=== PATIENT | male | born 1945 | race Caucasian/White ===

== ENCOUNTER 2017-04-06 22:56 | Emergency (ER) | payer MEDICARE, BC ==
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
[2017-04-07 00:07] LABS: Appearance,Urine Clear (Clear); Bilirubin,Urine Negative (Negative); Glucose,Urine (UA) Negative (Negative); Ketones,Urine Trace (Negative); Leukocyte Esterase,Urine Negative (Negative); Nitrite,Urine Negative (Negative); PH, Urine 6.5 (5.0-8.0); Protein,Urine Negative (Negative); Specific Gravity,Urine 1.017 (1.001-1.035); UA Billing (MACRO vs. MICRO) CHEM; Urobilinogen,Urine <2.0 mg/dL (<2.0)
[2017-04-07 00:26] LABS: Basophils % (A) 1 %; CH 29.9; CHCM 32.6; Eosinophils # (A) 0.3 k/uL (0-0.7); Eosinophils % (A) 5 %; HCT 40.5 % (39.0-53.0); HDW 2.51; HGB 13.1 gm/dL (13.0-17.5); Luc # (Auto) 0.11; Luc % (Auto) 2; Lymphocytes # (A) 2.1 k/uL (1.0-4.8); Lymphocytes % (A) 34 %; MCH 29.9 pg (25.0-35.0); MCHC 32.5 g/dL (31.0-37.0); Mean Platelet Volume 7.8; Monocytes # (A) 0.5 k/uL (0-1.0); Monocytes % (A) 8 %; Neutrophils # (A) 3.2 k/uL (1.3-7.7); Neutrophils % (A) 51 %; RDW 15.3 % (11.5-15.5); WBC 6.3 k/uL (3.8-10.6)
[2017-04-07 00:35] LABS: ALT 22 U/L (21-72); AST 36 U/L (17-59); Alkaline Phosphatase 67 U/L (38-126); Anion Gap 9 mmol/L; Blood Urea Nitrogen 27 mg/dL (9-20); Calcium 9.1 mg/dL (8.4-10.2); Carbon Dioxide 25 mmol/L (22-30); Chloride 105 mmol/L (98-107); Glucose 118 mg/dL (74-99); Non-African American GFR(MDRD) >60 (>60 ml/min/1.73 sqM); Sodium 139 mmol/L (137-145); Total Bilirubin 0.6 mg/dL (0.2-1.3); Total Protein 6.9 g/dL (6.3-8.2)
[2017-04-07 00:37] LABS: Potassium 4.8 mmol/L (3.5-5.1)
[2017-04-07 02:13] VITALS: BP 136/75; PULSE 75; RESP 16; TEMP 98.3
== END 2017-04-07 02:16 | disposition home or self-care (01) ==
LOC: EC 22:56
DX: G20 Parkinson's disease (principal); F02.81 Dementia in other diseases classified elsewhere, unspecified severity, with behavioral disturbance; F05 Delirium due to known physiological condition; F31.9 Bipolar disorder, unspecified; Z87.891 Personal history of nicotine dependence
CPT/HCPCS: 36415; 80053; 80306; 81003; 82075; 85025; 99284

== ENCOUNTER → 2022-10-12 | Outpatient (CLI) | payer MEDICARE, BC ==
[2022-10-12 16:33] LABS: African American GFR (CKD) >90 (>60 ml/min/1.73 sqM); Blood Urea Nitrogen 21 mg/dL (9-20); Non-African American GFR(CKD) 84 (>60 ml/min/1.73 sqM)
--- NOTE | 2022-10-12 17:15 | CT ---
EXAMINATION TYPE: CT angio chest CT DLP: 614.30 mGycm, Automated exposure control for dose reduction was used. DATE OF EXAM: 10/12/2022 4:53 PM COMPARISON: PET 08/30/2022 CLINICAL INDICATION:Male, 76 years old with history of SOB R06.02; SOB. HX OF PE AND LUNG CA TECHNIQUE/CONTRAST: CTA scan of the thorax is performed with IV Contrast, patient injected with 89ML mL of Isovue 370, pu lmonary embolism protocol. MIP images are created and reviewed these are created on a separate works tation.. FINDINGS: Pulmonary Artery: There is no evidence for a filling defect within the pulmonary vasculature to sugge st acute pulmonary embolism. The pulmonary artery is of normal size. Lungs/Pleura: Redemonstration of left upper lung mass roughly soft tissue measuring 11.1 x 5.5 cm ant eriorly, previously measuring 9.2 x 6.2 cm.. There is extension into the mediastinum into the mediast inal fat and along the wall likely anteriorly likely invading through the pleura. Scattered airspace opacities are seen in the left upper lung. Airway: Large airways are patent. Heart: Heart is within normal limits for size. Vasculature: No evidence of aortic aneurysm. Mediastinum: No gross evidence of adenopathy. Musculoskeletal: No acute osseous abnormalities Soft Tissues: Unremarkable. Lower neck: No significant findings. Upper Abdomen: No significant findings. IMPRESSION: 1. No evidence of pulmonary embolism. 2. Left upper lung airspace opacities which are new from prior PET criteria for pneumonia. 3. Known left upper lobe mass which is increased in size from prior. Mass appears to be invading into the mediastinal fat and the chest wall anteriorly.
== END | disposition home or self-care (01) ==
LOC: RADCTMAIN 15:37
PROVIDERS: ATTEND Internal Medicine Hematology & Oncology
DX: R91.8 Other nonspecific abnormal finding of lung field (principal); R06.02 Shortness of breath; Z86.711 Personal history of pulmonary embolism
CPT/HCPCS: 82565; 84520; 71275; 36415; Q9967

== ENCOUNTER → 2022-12-09 | Outpatient (CLI) | payer MEDICARE, BC ==
--- NOTE | 2022-12-09 08:57 | CT ---
EXAMINATION TYPE: CT chest w con DATE OF EXAM: 12/09/2022 COMPARISON: CTA chest October 12, 2022 HISTORY: Lung cancer, dyspnea CT DLP: 962 mGycm. Automated Exposure Control for Dose Reduction was Utilized. TECHNIQUE: CT scan of the thorax is performed following with IV Contrast, patient injected with 100 mL of Isovue 300. FINDINGS: LUNGS: Elevated left hemidiaphragm with small left pleural effusion and tiny right pleural effusion a re more prominent from prior. There are new areas of groundglass opacity bilaterally with additional areas of organizing consolidation seen throughout the left lung. Anterior left apical mass on prior s tudy now is more ill-defined and difficult to accurately measure. Area of involvement measures approx imately 4.7 x 3.0 cm axial image 16. MEDIASTINUM: Cardiomegaly is redemonstrated. Post-CABG changes with sternal wires and mediastinal cl ips are again seen. No new greater than 1 cm hilar or mediastinal lymph nodes. OTHER: Exaggerated thoracic kyphosis. Multilevel spurring in the spine. IMPRESSION: 1. Positive treatment response to the anterior left upper lung mass or neoplasm. No new masses or sherwin nopathy. 2. There are new and worsening groundglass opacities bilaterally with additional areas of consolidati on in the left lung. Findings could reflect acute infectious process but side effect of pneumonitis r elated to treatment needs to be considered. Correlate clinically.
== END | disposition home or self-care (01) ==
LOC: RADCTMAIN 07:22
PROVIDERS: ATTEND Internal Medicine Hematology & Oncology
DX: C34.12 Malignant neoplasm of upper lobe, left bronchus or lung (principal); I25.10 Atherosclerotic heart disease of native coronary artery without angina pectoris; R91.8 Other nonspecific abnormal finding of lung field; Z71.3 Dietary counseling and surveillance; M12.9 Arthropathy, unspecified
CPT/HCPCS: 82565; 84520; 71260; 36415; Q9967

== ENCOUNTER 2022-12-10 12:03 | Inpatient (IN) | payer MEDICARE, BC ==
[2022-12-10] MEDS ORDERED: ALBUTEROL NEBULIZED 2.5 MG/3 ML INHALATION STA (12:17)
[2022-12-10] MEDS ORDERED: methylPREDNISolone SOD SUCCI 125 MG/2 ML VIAL IV STA (12:17)
[2022-12-10] MEDS ORDERED: IPRATROPIUM 0.5 MG/2.5 ML NEBU INHALATION STA (12:17)
--- NOTE | 2022-12-10 12:44 | ED ---
General Adult HPI - General Chief complaint: Shortness of Breath Stated complaint: SOB Time Seen by Provider: 12/10/22 12:12 Source: patient, RN notes reviewed, old records reviewed Mode of arrival: ambulatory Limitations: no limitations - History of Present Illness Initial comments: 77-year-old male history of lung cancer status post chemo with most recent chemo being about 30 days ago. He is presenting with dyspnea from the primary care office. He does report cough which is nonproductive. No fever. No central chest pain. Patient states he is on Eliquis. - Related Data Home Medications Medication Instructions Recorded Confirmed Apixaban [Eliquis] 5 mg PO BID 11/03/22 11/03/22 Aspirin EC [Ecotrin Low Dose] 81 mg PO DAILY 11/03/22 11/03/22 Carbidopa-Levodopa ER 50-200Mg 2 tab PO TID 11/03/22 11/03/22 [Sinemet CR 50-200 mg] Divalproex [Depakote] 250 mg PO TID 11/03/22 11/03/22 Donepezil HCl [Aricept] 10 mg PO DAILY 11/03/22 11/03/22 Furosemide [Lasix] 20 mg PO DAILY 11/03/22 11/03/22 Levothyroxine Sodium [Synthroid] 50 mcg PO DAILY 11/03/22 11/03/22 Metoprolol Succinate (ER) [Toprol 25 mg PO DAILY 11/03/22 11/03/22 XL] OLANZapine [ZyPREXA] 10 mg PO DAILY 11/03/22 11/03/22 QUEtiapine [SEROquel] 200 mg PO HS 11/03/22 11/03/22 SILVER sulfADIAZINE Cream 1 applic TOPICAL BID 11/03/22 11/03/22 [Silvadene 1% Cream] Simvastatin [Zocor] 40 mg PO HS 11/03/22 11/03/22 amantadine HCL [Amantadine] 100 mg PO BID 11/03/22 11/03/22 Previous Rx's Medication Instructions Recorded Ferrous Sulfate [Iron (65 MG 325 mg PO BID@1200,2000 #60 tab 11/10/22 Elemental)] Pantoprazole [Protonix] 40 mg PO DAILY #30 tab 11/10/22 Allergies Allergy/AdvReac Type Severity Reaction Status Date / Time No Known Allergies Allergy Verified 12/10/22 12:10 Review of Systems ROS Statement: Those systems with pertinent positive or pertinent negative responses have been documented in the HPI. ROS Other: All systems not noted in ROS Statement are negative. Past Medical History Past Medical History: Myocardial Infarction ([place]) Additional Past Medical History / Comment(s): parkinson, dementia, Last Myocardial Infarction Date:: 1982 History of Any Multi-Drug Resistant Organisms: None Reported Past Surgical History: Coronary Bypass/CABG Additional Past Surgical History / Comment(s): hip surgery Past Anesthesia/Blood Transfusion Reactions: No Reported Reaction Past Psychological History: No Psychological Hx Reported Smoking Status: Never smoker Past Alcohol Use History: None Reported Past Drug Use History: None Reported General Exam Limitations: no limitations General appearance: alert, in distress Head exam: Present: atraumatic, normocephalic Eye exam: Present: normal appearance, PERRL ENT exam: Present: normal exam Neck exam: Present: normal inspection. Absent: tenderness, meningismus Respiratory exam: Present: respiratory distress, wheezes, decreased breath sounds Cardiovascular Exam: Present: regular rate, normal rhythm GI/Abdominal exam: Present: soft. Absent: distended, tenderness, guarding Extremities exam: Present: pedal edema Neurological exam: Present: alert, oriented X3, CN II-XII intact. Absent: motor sensory deficit Psychiatric exam: Present: normal affect, normal mood Skin exam: Present: warm, dry, intact Course Vital Signs 12/10/22 12/10/22 12/10/22 12:08 12:39 12:43 Temperature 97.8 F Pulse Rate 93 110 H 87 Respiratory 40 H 40 H Rate Blood Pressure 119/74 93/54 O2 Sat by Pulse 85 L 85 L Oximetry 12/10/22 12:53 Temperature Pulse Rate 86 Respiratory Rate Blood Pressure O2 Sat by Pulse Oximetry - Reevaluation(s) Reevaluation #1: 12/10/22 13:[address] of the chest performed yesterday which showed groundglass opacities in both lungs. Medical Decision Making - Medical Decision Making Was pt. sent in by a medical professional or institution (, PA, ASSISTANT ART DIRECTOR, urgent care, hospital, or halfway...) When possible be specific @ -No Did you speak to anyone other than the patient for history (EMS, parent, family, police, friend...)? What history was obtained from this source @ -Patient's Did you review nursing and triage notes (agree or disagree)? Why? @ -I reviewed and agree with nursing and triage notes Were old charts reviewed (outside hosp., previous admission, EMS record, old EKG, old radiological studies, urgent care reports/EKG's, halfway records)? Report findings @ CT performed yesterday Differential Diagnosis (chest pain, altered mental status, abdominal pain women, abdominal pain men, vaginal bleeding, weakness, fever, dyspnea, syncope, headache, dizziness, GI bleed, back pain, seizure, CVA, palpatations, mental health, musculoskeletal)? @ -Differential Dyspnea: Coronary syndrome, arrhythmia, tamponade, asthma, COPD, pulmonary embolism, pneu monia, pneumothorax, pulmonary effusion, anaphylaxis, diabetic ketoacidosis, flailed chest, pulmonary contusion, diaphragmatic rupture, anemia, neuromuscular, this is not meant to be an all-inclusive list. EKG interpreted by me (3pts min.). @ -[EKG: Sinus rhythm, right bundle branch block, left axis, rate of 92, OR interval 153, QRS duration 137, QTC [address] segment elevation X-rays interpreted by me (1pt min.). @ -[Chest x-ray showing significant multifocal opacity worse on the left. CT interpreted by me (1pt min.). @ CT of the chest performed yesterday which showed groundglass opacity and airspace disease U/S interpreted by me (1pt. min.). @ -None done What testing was considered but not performed or refused? (CT, X-rays, U/S, labs)? Why? @ -None What meds were considered but not given or refused? Why? @ -None Did you discuss the management of the patient with other professionals (professionals i.e. , PA, ASSISTANT ART DIRECTOR, lab, RT, psych nurse, social media assistant, director of global marketing, teacher, sustainability officer, case management assistant)? Give summary @ [facility] Was smoking cessation discussed for >3mins.? @ -No Was critical care preformed (if so, how long)? @ -[yes 35 min Were there social determinants of health that impacted care today? How? (Homelessness, low income, unemployed, alcoholism, drug addiction, transportation, low edu. Level, literacy, decrease access to med. care, fci, rehab)? @ -No Was there de-escalation of care discussed even if they declined (Discuss DNR or withdrawal of care, Hospice)? DNR status @ -[DO NOT RESUSCITATE What co-morbidities impacted this encounter? (DM, HTN, Smoking, COPD, CAD, Cancer, CVA, ARF, Chemo, Hep., AIDS, mental health diagnosis, sleep apnea, morbid obesity)? @ CAD, lung cancer Was patient admitted / discharged? Hospital course, mention meds given and route, prescriptions, significant lab abnormalities, going to OR and other pertinent info. @ 77 yo male presenting with dyspnea from the primary care office. Patient has cough. He has bilateral wheezing. X-ray shows significant airspace opacity which was also visualized on CAT scan which was performed yesterday. He has a normal white blood cell count, stable chronic anemia, significantly elevated troponin of 4.7 and an elevated d-dimer at 5600. This is multifactorial dyspnea. Patient will be treated with IV antibiotics for the possibility of pneumonia. Is also given albuterol, Atrovent steroids. He is on Eliquis but will be started on heparin for this troponin elevation. His does indicate that he is a DO NOT RESUSCITATE. Undiagnosed new problem with uncertain prognosis? @ -No Drug Therapy requiring intensive monitoring for toxicity (Heparin, Nitro, Insulin, Cardizem)? @ -No Were any procedures done? @ -No Diagnosis/symptom? @ -Hypoxia, pneumonia, and NSTEMI Acute, or Chronic, or Acute on Chronic? @ -[Acute Uncomplicated (without systemic symptoms) or Complicated (systemic symptoms)? @ -[Complicated Side effects of treatment? @ -No Exacerbation, Progression, or Severe Exacerbation? @ -No Poses a threat to life or bodily function? How? (Chest pain, [place], [place], pneumonia, PE, COPD, DKA, ARF, appy, cholecystitis, CVA, Diverticulitis, Homicidal, Suicidal, threat to staff... and all critical care pts) @ -[Yes, hypoxia, respiratory failure, cardiogenic shock - Lab Data Result diagrams: 12/10/22 12:17 12/10/22 12:17 Lab Results 12/10/22 12/10/22 12/10/22 Range/Units 12:17 12:17 12:17 WBC 10.0 (3.8-10.6) k/uL RBC 3.47 L (4.30-5.90) m/uL Hgb 9.5 L (13.0-17.5) gm/dL Hct 30.5 L (39.0-53.0) % MCV 87.9 (80.0-100.0) fL MCH 27.5 (25.0-35.0) pg MCHC 31.3 (31.0-37.0) g/dL RDW 20.5 H (11.5-15.5) % Plt Count 226 (150-450) k/uL MPV 7.7 Neutrophils % 82 % Lymphocytes % 5 % Monocytes % 9 % Eosinophils % 2 % Basophils % 0 % Neutrophils # 8.2 H (1.3-7.7) k/uL Lymphocytes # 0.5 L (1.0-4.8) k/uL Monocytes # 0.9 (0-1.0) k/uL Eosinophils # 0.2 (0-0.7) k/uL Basophils # 0.0 (0-0.2) k/uL Hypochromasia Marked Anisocytosis Moderate Sodium 140 (137-145) mmol/L Potassium 4.9 (3.5-5.1) mmol/L Chloride 99 (98-107) mmol/L Carbon Dioxide 31 H (22-30) mmol/L Anion Gap 10 mmol/L BUN 25 H (9-20) mg/dL Creatinine 1.10 (0.66-1.25) mg/dL Est GFR (CKD-EPI)AfAm 74 (>60 ml/min/1.73 sqM) Est GFR (CKD-EPI)NonAf 64 (>60 ml/min/1.73 sqM) Glucose 109 H (74-99) mg/dL Plasma Lactic Acid Gabo 3.1 H* (0.7-2.0) mmol/L Calcium 8.9 (8.4-10.2) mg/dL Magnesium 2.3 (1.6-2.3) mg/dL Total Bilirubin 0.4 (0.2-1.3) mg/dL AST 25 (17-59) U/L ALT 11 (4-49) U/L Alkaline Phosphatase 95 (38-126) U/L Troponin I (0.000-0.034) ng/mL NT-Pro-B Natriuret Pep pg/mL Total Protein 6.4 (6.3-8.2) g/dL Albumin 3.3 L (3.5-5.0) g/dL 12/10/22 12/10/22 Range/Units 12:17 12:17 WBC (3.8-10.6) k/uL RBC (4.30-5.90) m/uL Hgb (13.0-17.5) gm/dL Hct (39.0-53.0) % MCV (80.0-100.0) fL MCH (25.0-35.0) pg MCHC (31.0-37.0) g/dL RDW (11.5-15.5) % Plt Count (150-450) k/uL MPV Neutrophils % % Lymphocytes % % Monocytes % % Eosinophils % % Basophils % % Neutrophils # (1.3-7.7) k/uL Lymphocytes # (1.0-4.8) k/uL Monocytes # (0-1.0) k/uL Eosinophils # (0-0.7) k/uL Basophils # (0-0.2) k/uL Hypochromasia Anisocytosis Sodium (137-145) mmol/L Potassium (3.5-5.1) mmol/L Chloride (98-107) mmol/L Carbon Dioxide (22-30) mmol/L Anion Gap mmol/L BUN (9-20) mg/dL Creatinine (0.66-1.25) mg/dL Est GFR (CKD-EPI)AfAm (>60 ml/min/1.73 sqM) Est GFR (CKD-EPI)NonAf (>60 ml/min/1.73 sqM) Glucose (74-99) mg/dL Plasma Lactic Acid [place] (0.7-2.0) mmol/L Calcium (8.4-10.2) mg/dL Magnesium (1.6-2.3) mg/dL Total Bilirubin (0.2-1.3) mg/dL AST (17-59) U/L ALT (4-49) U/L Alkaline Phosphatase (38-126) U/L Troponin I 4.700 H* (0.000-0.034) ng/mL NT-Pro-B Natriuret Pep 5640 pg/mL Total Protein (6.3-8.2) g/dL Albumin (3.5-5.0) g/dL Critical Care Time Critical Care Time: Yes Total Critical Care Time: 35 Disposition Clinical Impression: NSTEMI (non-ST elevated myocardial infarction), Squamous cell carcinoma lung, Bilateral pneumonia, Hypoxia Disposition: ADMITTED IP TO THIS HOSP Condition: Serious Is patient prescribed a controlled substance at d/c from ED?: No Referrals: Jocy Joyce DO [Primary Care Provider] - 1-2 days Time of Disposition: 13:41
[2022-12-10 12:46] LABS: Anisocytosis Moderate; Basophils % (A) 0 %; Eosinophils # (A) 0.2 k/uL (0-0.7); Eosinophils % (A) 2 %; HCT 30.5 % (39.0-53.0); HGB 9.5 gm/dL (13.0-17.5); Hypochromasia Marked; Lymphocytes # (A) 0.5 k/uL (1.0-4.8); Lymphocytes % (A) 5 %; MCH 27.5 pg (25.0-35.0); MCHC 31.3 g/dL (31.0-37.0); MCV 87.9 fL (80.0-100.0); Mean Platelet Volume 7.7; Monocytes # (A) 0.9 k/uL (0-1.0); Monocytes % (A) 9 %; Neutrophils # (A) 8.2 k/uL (1.3-7.7); Neutrophils % (A) 82 %; Platelet Count 226 k/uL (150-450); RBC 3.47 m/uL (4.30-5.90); RDW 20.5 % (11.5-15.5)
[2022-12-10 12:56] LABS: Total Protein 6.4 g/dL (6.3-8.2)
[2022-12-10 12:57] LABS: Albumin 3.3 g/dL (3.5-5.0); Calcium 8.9 mg/dL (8.4-10.2); Magnesium 2.3 mg/dL (1.6-2.3); Potassium 4.9 mmol/L (3.5-5.1); Total Bilirubin 0.4 mg/dL (0.2-1.3)
--- NOTE | 2022-12-10 13:06 | XR ---
A limited lateral EXAMINATION TYPE: XR chest 1V portable DATE OF EXAM: 12/10/2022 HISTORY: Shortness of breath. COMPARISON: 11/09/22 TECHNIQUE: Single view of the chest is submitted. FINDINGS: Demonstrated are scattered senescent parenchymal change. Diffuse bilateral airspace infiltrates greatest within the perihilar and upper lobe regions. Correlat e for pneumonia. The heart is stable. Hilar and mediastinal structures are within normal limits. Degenerative changes are seen of the dorsal spine. IMPRESSION: 1. Diffuse bilateral airspace infiltrates greatest within the perihilar and upper lobe regions. Divya elate for pneumonia.
[2022-12-10] MEDS ORDERED: AZITHROMYCIN 500 MG in SODIUM CHLORIDE 0.9% 250 ML IVPB STA (13:17)
[2022-12-10 13:21] LABS: Partial Thromboplastin Time 22.3 sec (22.0-30.0); Prothrombin Time 10.3 sec (9.0-12.0)
[2022-12-10] MEDS ORDERED: HEPARIN SODIUM 1,000 UN/ML (10ML VL) IV ONE (13:34)
[2022-12-10] MEDS ORDERED: NALOXONE 0.4 MG/ML 1 ML VIAL IV PRN (13:36)
[2022-12-10] MEDS ORDERED: FUROSEMIDE 10 MG/ML 2 ML VIAL IV ONE (13:49)
[2022-12-10] MEDS: HEPARIN SOD,PORK IN 0.45% NACL 25,000 UNIT in 0.45% NACL 1 250ML.BAG IV SCH (14:01)
--- NOTE | 2022-12-10 14:04 | P.HPIM ---
History of Present Illness 77-year-old male came in with complaints of shortness of breath has been going on for 4 days. Patient does have history of lung cancer for which she received treatment about a month ago. A CT was done yesterday which showed multiple areas of pneumonic infiltrates in both lungs significant on the left side. Chest x-ray is done today which showed similar findings. Patient also found to have elevated troponin of 4.7 patient had history of coronary artery disease and CABG 30 years ago. No recent history of cardiac catheterization. Patient denied any fever chills patient doesn't have any leukocytosis. Patient does have elevated troponin of 4700 EKG showed right bundle branch block and there may be some nonspecific ST-T wave changes on the EKG as well. REVIEW OF SYSTEMS: CONSTITUTIONAL: No fever, no malaise, no fatigue. HEENT: No recent visual problems or hearing problems. Denied any sore throat. CARDIOVASCULAR: No chest pain, no palpitations, no syncope. PULMONARYno hemoptysis. GASTROINTESTINAL: No diarrhea, no nausea, no vomiting, no abdominal pain. NEUROLOGICAL: No headaches, no weakness, no numbness. HEMATOLOGICAL: Denies any bleeding or petechiae. GENITOURINARY: Denies any burning micturition, frequency, or urgency. MUSCULOSKELETAL/RHEUMATOLOGICAL: Denies any joint pain, swelling, or any muscle pain. ENDOCRINE: Denies any polyuria or polydipsia. The rest of the 14-point review of systems is negative. PHYSICAL EXAMINATION: GENERAL: The patient is alert and oriented x3, patient is in mild respiratory distress well developed, well nourished. HEENT: Pupils are round and equally reacting to light. EOMI. No scleral icterus. No conjunctival pallor. Normocephalic, atraumatic. No pharyngeal erythema. No thyromegaly. CARDIOVASCULAR: S1 and S2 present. No murmurs, rubs, or gallops. PULMONARY: Chest is clear to auscultation, no wheezing or crackles. ABDOMEN: Soft, nontender, nondistended, normoactive bowel sounds. No palpable organomegaly. MUSCULOSKELETAL: No joint swelling or deformity. EXTREMITIES: No cyanosis, clubbing, or pedal edema. NEUROLOGICAL: Gross neurological examination did not reveal any focal deficits. SKIN: No rashes. Assessment and plan -Acute hypoxic respiratory failure: Etiology is not clear CT is consistent with pneumonic infiltrate and we infectious pneumonia or inflammatory reaction secondary to chemotherapy. Patient will be started and continued on antibiotics Rocephin and azithromycin. Patient does have elevated BNP of 5000 and patient does have elevated JVD congestive heart failure new-onset may be contributing to his symptoms. Patient will be given a dose of Lasix. -Possible severe sepsis with elevated lactic acid, infectious pneumonia cannot be ruled out -Congestive heart heart failure possibly acute systolic dysfunction from pos sible acute microinfarction with elevated troponin and patient will be given a small dose of Lasix. -Possible type I non-ST elevation microinfarction patient is being started on IV heparin although patient does take Eliquis at home -mild acute renal failure secondary to acute tubular necrosis can be secondary to hypoperfusion and hypotension -History of Parkinson's -Gases reveal reflux disease -Hyperlipidemia next and heparin coronary artery disease -Hypothyroidism DVT prophylaxis: On anti-correlation as mentioned above Past Medical History Past Medical History: Myocardial Infarction ([place]) Additional Past Medical History / Comment(s): parkinson, dementia, Last Myocardial Infarction Date:: 1982 History of Any Multi-Drug Resistant Organisms: None Reported Past Surgical History: Coronary Bypass/CABG Additional Past Surgical History / Comment(s): hip surgery Past Anesthesia/Blood Transfusion Reactions: No Reported Reaction Past Psychological History: No Psychological Hx Reported Smoking Status: Never smoker Past Alcohol Use History: None Reported Past Drug Use History: None Reported Medications and Allergies Home Medications Medication Instructions Recorded Confirmed Type Apixaban [Eliquis] 5 mg PO BID 11/03/22 11/03/22 History Aspirin EC [Ecotrin Low Dose] 81 mg PO DAILY 11/03/22 11/03/22 History Carbidopa-Levodopa ER 50-200Mg 2 tab PO TID 11/03/22 11/03/22 History [Sinemet CR 50-200 mg] Divalproex [Depakote] 250 mg PO TID 11/03/22 11/03/22 History Donepezil HCl [Aricept] 10 mg PO DAILY 11/03/22 11/03/22 History Furosemide [Lasix] 20 mg PO DAILY 11/03/22 11/03/22 History Levothyroxine Sodium [Synthroid] 50 mcg PO DAILY 11/03/22 11/03/22 History Metoprolol Succinate (ER) [Toprol 25 mg PO DAILY 11/03/22 11/03/22 History XL] OLANZapine [ZyPREXA] 10 mg PO DAILY 11/03/22 11/03/22 History QUEtiapine [SEROquel] 200 mg PO HS 11/03/22 11/03/22 History SILVER sulfADIAZINE Cream 1 applic TOPICAL BID 11/03/22 11/03/22 History [Silvadene 1% Cream] Simvastatin [Zocor] 40 mg PO HS 11/03/22 11/03/22 History amantadine HCL [Amantadine] 100 mg PO BID 11/03/22 11/03/22 History Ferrous Sulfate [Iron (65 MG 325 mg PO BID@1200,2000 #60 tab 11/10/22 Rx Elemental)] Pantoprazole [Protonix] 40 mg PO DAILY #30 tab 11/10/22 Rx Allergies Allergy/AdvReac Type Severity Reaction Status Date / Time No Known Allergies Allergy Verified 12/10/22 12:10 Physical Exam Vitals: Vital Signs Temp Pulse Resp BP Pulse Ox 12/10/22 12:53 86 12/10/22 12:43 87 12/10/22 12:39 110 H 40 H 93/54 85 L 12/10/22 12:08 97.8 F 93 40 H 119/74 85 L Intake and Output 12/09/22 12/10/22 12/10/22 22:59 06:59 14:59 Other: Weight 103.419 kg Results CBC & Chem 7: 12/10/22 12:17 12/10/22 12:17 Labs: Abnormal Lab Results - Last 24 Hours (Table) 12/10/22 12/10/22 12/10/22 Range/Units 12:17 12:17 12:17 RBC 3.47 L (4.30-5.90) m/uL Hgb 9.5 L (13.0-17.5) gm/dL Hct 30.5 L (39.0-53.0) % RDW 20.5 H (11.5-15.5) % Neutrophils # 8.2 H (1.3-7.7) k/uL Lymphocytes # 0.5 L (1.0-4.8) k/uL Carbon Dioxide 31 H (22-30) mmol/L BUN 25 H (9-20) mg/dL Glucose 109 H (74-99) mg/dL Plasma Lactic Acid Gabo 3.1 H* (0.7-2.0) mmol/L Troponin I (0.000-0.034) ng/mL Albumin 3.3 L (3.5-5.0) g/dL 12/10/22 Range/Units 12:17 RBC (4.30-5.90) m/uL Hgb (13.0-17.5) gm/dL Hct (39.0-53.0) % RDW (11.5-15.5) % Neutrophils # (1.3-7.7) k/uL Lymphocytes # (1.0-4.8) k/uL Carbon Dioxide (22-30) mmol/L BUN (9-20) mg/dL Glucose (74-99) mg/dL Plasma Lactic Acid Gabo (0.7-2.0) mmol/L Troponin I 4.700 H* (0.000-0.034) ng/mL Albumin (3.5-5.0) g/dL
[2022-12-10] MEDS: HEPARIN SODIUM 1,000 UN/ML (10ML VL) IV PRN (20:56)
[2022-12-10] MEDS: FAMOTIDINE 20 MG TAB PO SCH (21:09)
[2022-12-11 03:28] LABS: Glucose,Whole Blood 146 mg/dL (70-110)
[2022-12-11] MEDS: HEPARIN SODIUM 1,000 UN/ML (10ML VL) IV PRN (03:44)
[2022-12-11 07:51] LABS: Anisocytosis Moderate; Basophils % (A) 0 %; Eosinophils % (A) 0 %; HCT 30.7 % (39.0-53.0); HGB 9.4 gm/dL (13.0-17.5); Hypochromasia Marked; Lymphocytes # (A) 0.5 k/uL (1.0-4.8); Lymphocytes % (A) 7 %; MCH 27.1 pg (25.0-35.0); MCHC 30.5 g/dL (31.0-37.0); MCV 88.8 fL (80.0-100.0); Mean Platelet Volume 8.1; Monocytes # (A) 0.5 k/uL (0-1.0); Monocytes % (A) 8 %; Neutrophils # (A) 5.3 k/uL (1.3-7.7); Neutrophils % (A) 83 %; Platelet Count 202 k/uL (150-450); RBC 3.46 m/uL (4.30-5.90); RDW 20.3 % (11.5-15.5); WBC 6.3 k/uL (3.8-10.6)
[2022-12-11 07:53] LABS: Prothrombin Time 10.5 sec (9.0-12.0)
[2022-12-11] MEDS ORDERED: PANTOPRAZOLE 40 MG/10 ML VIAL IV SCH (09:00)
[2022-12-11 09:17] LABS: Calcium 9.6 mg/dL (8.4-10.2); Magnesium 2.9 mg/dL (1.6-2.3); Potassium 5.3 mmol/L (3.5-5.1)
[2022-12-11] MEDS: FAMOTIDINE 20 MG TAB PO SCH ×2 (09:36→20:59)
[2022-12-11] MEDS: AZITHROMYCIN 500 MG TAB PO SCH (09:36)
[2022-12-11] MEDS: HEPARIN SOD,PORK IN 0.45% NACL 25,000 UNIT in 0.45% NACL 1 250ML.BAG IV SCH (09:40)
--- NOTE | 2022-12-11 10:48 | P.CRDCN ---
History of Present Illness Consult date: 12/11/22 History of present illness: History of Present Illness: The patient is a 77-year-old male with a known history of CAD, status post CABG, followed by Dr. Hill, diagnosed with lung CA in July, received radiation and undergoing chemotherapy, followed by Dr. Oconnell who presented with symptoms of progressive dyspnea, cough and fatigue. His troponin was noted to be elevated. He had no associated chest discomfort, peripheral edema, PND or orthopnea. The patient was admitted in October with troponin elevation at that time underwent an MPI that showed no evidence of stress-induced ischemia. His echocardiogram showed an ejection fraction of 50% with mild mitral regurgitation. The patient underwent CABG about 30 years ago. He stopped smoking at that time. He has no history of malignant arrhythmia. His coronary risk factors are positive for hypertension and hyperlipidemia, he is a nondiabetic. He has a prior history of pulmonary embolism and has been anticoagulated. Medications: Aspirin, Toprol-XL 25 mg daily, Lasix 20 mg daily, Sinemet, aspirin, simvastatin 40 mg daily,Eliquis 5 mg twice a day. Review of Systems: Respiratory: History of lung cancer was progressive dyspnea and cough, receiving chemotherapy, had recent pneumonia GI: No nausea or vomiting . No history of peptic ulcer disease. No recent GI bleed. : No hematuria or dysuria. Nervous System: No stroke or seizure. History of Parkinson disease Physical Examination: 77-year-old male, alert oriented more dyspneic ,Blood pressure 110/60, Heart rate 80 Head: Normocephalic. Eyes: Sclerae nonicteric. Neck: Good carotid upstroke, no bruit, no jugular venous distention. Lungs: Bilateral rhonchi and crackles Heart: Regular rate and rhythm, S1-S2, no S3, no rub. Systolic ejection murmur. Abdomen: Soft nontender, positive bowel sounds no organomegaly. Extremities: No edema, intact distal pulses. Labs: Hemoglobin 9.5, WBC 10, BUN 25, creatinine 1.1. Troponin 4.7, 4.4, 3.7. Past lactic acid 3.1. Chest x-ray with diffuse bilateral airspace infiltrate. His prior CAT scan shows the lung mass EKG: Sinus mechanism, rate of 92, right bundle branch block with left axis deviation Impression: 1. Non-STEMI with no symptoms of chest discomfort 2. Lung cancer receiving chemotherapy 3. Possible pneumonia 4. History of CABG 30 years ago 5. History of hypertension 6. History of hyperlipidemia 7. History of Parkinson disease Plan: 1. Restart beta rafy 2. Add diuretics 3. Obtain a limited echo 4. In view of his malignancy the patient is not a candidate for aggressive ca rdiac workup at this time 5. Prognosis is guarded 6. Depending on his progress further recommendations will be made 7. Thank you for this consult we will follow with you. Past Medical History Past Medical History: Cancer, Myocardial Infarction ([place]), Pulmonary Embolus ([place]), Sleep Apnea/CPAP/BIPAP Additional Past Medical History / Comment(s): parkinson, dementia, left lung cancer-chemo and radiation [id number] pt william elizondo, ptstates he had blood clots in his lungs. Last Myocardial Infarction Date:: 1982 History of Any Multi-Drug Resistant Organisms: None Reported Past Surgical History: Coronary Bypass/CABG, Heart Catheterization Additional Past Surgical History / Comment(s): right hip surgery Past Anesthesia/Blood Transfusion Reactions: No Reported Reaction Past Psychological History: Bipolar Smoking Status: Former smoker Past Alcohol Use History: None Reported Additional Past Alcohol Use History / Comment(s): stopped smoking when had heart attack Past Drug Use History: None Reported - Past Family History Mother Additional Family Medical History / Comment(s): renal disease Medications and Allergies Home Medications Medication Instructions Recorded Confirmed Type Apixaban [Eliquis] 5 mg PO BID 11/03/22 12/10/22 History Aspirin EC [Ecotrin Low Dose] 81 mg PO DAILY 11/03/22 12/10/22 History Carbidopa-Levodopa ER 50-200Mg 2 tab PO TID 11/03/22 12/10/22 History [Sinemet CR 50-200 mg] Divalproex [Depakote] 250 mg PO TID 11/03/22 12/10/22 History Donepezil HCl [Aricept] 10 mg PO DAILY 11/03/22 12/10/22 History Furosemide [Lasix] 20 mg PO DAILY 11/03/22 12/10/22 History Levothyroxine Sodium [Synthroid] 50 mcg PO DAILY 11/03/22 12/10/22 History Metoprolol Succinate (ER) [Toprol 25 mg PO DAILY 11/03/22 12/10/22 History XL] OLANZapine [ZyPREXA] 10 mg PO DAILY 11/03/22 12/10/22 History QUEtiapine [SEROquel] 200 mg PO HS 11/03/22 12/10/22 History SILVER sulfADIAZINE Cream 1 applic TOPICAL BID 11/03/22 12/10/22 History [Silvadene 1% Cream] Simvastatin [Zocor] 40 mg PO HS 11/03/22 12/10/22 History amantadine HCL [Amantadine] 100 mg PO BID 11/03/22 12/10/22 History Ferrous Sulfate [Iron (65 MG 325 mg PO BID@1200,2000 #60 tab 11/10/22 12/10/22 Rx Elemental)] Pantoprazole [Protonix] 40 mg PO DAILY #30 tab 11/10/22 12/10/22 Rx Potassium Chloride ER [K-Dur 10] 10 meq PO DAILY 12/10/22 12/10/22 History Allergies Allergy/AdvReac Type Severity Reaction Status Date / Time No Known Allergies Allergy Verified 12/10/22 15:46 Physical Exam Vitals: Vital Signs Temp Pulse Pulse Resp BP BP Pulse Ox 12/11/22 09:45 92 L 12/11/22 09:35 79 18 110/65 89 L 12/11/22 05:00 97.4 F L 12/11/22 04:00 65 22 114/75 96 12/11/22 02:00 22 12/11/22 00:00 97.4 F L 68 22 129/77 94 L 12/10/22 20:45 97.8 F 65 24 97/59 92 L 12/10/22 20:02 71 24 117/72 97 12/10/22 20:00 97 12/10/22 19:44 77 22 118/75 96 12/10/22 18:00 80 24 126/77 95 12/10/22 16:00 80 28 H 118/79 97 12/10/22 15:00 82 28 H 102/68 95 12/10/22 14:10 86 104/74 95 12/10/22 12:53 86 12/10/22 12:43 87 12/10/22 12:39 110 H 40 H 93/54 85 L 12/10/22 12:08 97.8 F 93 40 H 119/74 85 L Intake and Output 12/10/22 12/11/22 12/11/22 22:59 06:59 14:59 Intake Total 68.886 90.187 89.951 Output Total 550 Balance -481.114 90.187 89.951 Intake: Intake, IV Titration 68.886 90.187 89.951 Amount Heparin Sod,Pork in 0.45% 68.886 90.187 89.951 NaCl 25,000 unit In 0.45 % NaCl 1 250ml.bag @ 9.7 UNITS/KG/HR 10.032 mls/hr IV .Q24H [facility] Rx#: [id number] Output: Urine 550 Other: Voiding Method Urinal Urinal Weight 103.419 kg 80.5 kg Results 12/11/22 07:26 12/11/22 07:26 Cardiac Enzymes 12/10/22 12/10/22 12/10/22 Range/Units 12:17 12:17 14:42 AST 25 (17-59) U/L Troponin I 4.700 H* 4.490 H* (0.000-0.034) ng/mL 12/10/22 Range/Units 19:09 AST (17-59) U/L Troponin I 3.740 H* (0.000-0.034) ng/mL Coagulation 12/10/22 12/10/22 12/11/22 Range/Units 12:17 19:09 03:18 PT 10.3 (9.0-12.0) sec APTT 22.3 30.1 H 38.0 H (22.0-30.0) sec 12/11/22 12/11/22 Range/Units 07:26 07:26 PT 10.5 (9.0-12.0) sec APTT 54.4 H (22.0-30.0) sec CBC 12/10/22 12/11/22 Range/Units 12:17 07:26 WBC 10.0 6.3 (3.8-10.6) k/uL RBC 3.47 L 3.46 L (4.30-5.90) m/uL Hgb 9.5 L 9.4 L (13.0-17.5) gm/dL Hct 30.5 L 30.7 L (39.0-53.0) % Plt Count 226 202 (150-450) k/uL Comprehensive Metabolic Panel 12/10/22 12/11/22 Range/Units 12:17 07:26 Sodium 140 140 (137-145) mmol/L Potassium 4.9 5.3 H (3.5-5.1) mmol/L Chloride 99 102 (98-107) mmol/L Carbon Dioxide 31 H 30 (22-30) mmol/L BUN 25 H 31 H (9-20) mg/dL Creatinine 1.10 0.96 (0.66-1.25) mg/dL Glucose 109 H 144 H (74-99) mg/dL Calcium 8.9 9.6 (8.4-10.2) mg/dL AST 25 (17-59) U/L ALT 11 (4-49) U/L Alkaline Phosphatase 95 (38-126) U/L Total Protein 6.4 (6.3-8.2) g/dL Albumin 3.3 L (3.5-5.0) g/dL Current Medications Generic Name Dose Route Start Last Admin Trade Name Freq PRN Reason Stop Dose Admin Azithromycin 500 mg 12/11/22 09:00 12/11/22 09:36 Azithromycin 500 Mg Tab PO 12/14/22 09:01 500 mg DAILY KAMALA Administration Protocol Famotidine 20 mg 12/10/22 21:00 12/11/22 09:36 Famotidine 20 Mg Tab PO 20 mg BID KAMALA Administration Heparin Sodium (Porcine) 0 unit 12/10/22 13:34 12/11/22 03:44 Heparin Sodium 1,000 Un/Ml (10ml Vl) IV 2,500 unit PER PROTOCOL PRN Administration Low PTT Protocol Heparin Sodium/Sodium Chloride 250 mls @ 10.032 mls/hr 12/10/22 13:45 12/11/22 09:40 25,000 unit/ Sodium Chloride IV 14.7 units/kg/hr .Q24H KAMALA 15.203 mls/hr Administration Protocol 9.7 UNITS/KG/HR Ceftriaxone Sodium 2 gm/ 50 mls @ 100 mls/hr 12/11/22 09:00 12/11/22 09:36 Sodium Chloride IVPB 100 mls/hr Q24HR KAMALA Administration Protocol Naloxone HCl 0.2 mg 12/10/22 13:36 Naloxone 0.4 Mg/Ml 1 Ml Vial IV Q2M PRN Opioid Reversal Pantoprazole Sodium 40 mg 12/12/22 07:30 Pantoprazole 40 Mg Tablet PO AC-BRKFST [facility] Intake and Output 12/10/22 12/11/22 12/11/22 22:59 06:59 14:59 Intake Total 68.886 90.187 89.951 Output Total 550 Balance -481.114 90.187 89.951 Intake: Intake, IV Titration 68.886 90.187 89.951 Amount Heparin Sod,Pork in 0.45% 68.886 90.187 89.951 NaCl 25,000 unit In 0.45 % NaCl 1 250ml.bag @ 9.7 UNITS/KG/HR 10.032 mls/hr IV .Q24H [facility] Rx#: [id number] Output: Urine 550 Other: Voiding Method Urinal Urinal Weight 103.419 kg 80.5 kg 12/11/22 07:26 12/11/22 07:26
--- NOTE | 2022-12-11 11:59 | P.CNPUL ---
History of Present Illness Consult date: 12/11/22 Reason for consult: dyspnea History of present illness: This 77-year-old male patient came into the hospital because of worsening shortness of breath. He has limited cough. No significant sputum production. 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 He was in the hospital back in October 2022 for an acute non-STEMI. Is known to have coronary disease and he has undergone bypass surgery many years back. His white cell count at 6.3 with a hemoglobin of 9.3. His troponin in the emergency was was high at 4.4 is down trending. He has no chest pain. EKG showing a right bundle branch block pattern and was present on previous admissions. BUN is at 31 with a creatinine of 0.9. Lactic acid level is at 2.9. The patient is currently on IV heparin. Started on Rocephin and Zithromax. No altered mentation. Currently is on 4 L of oxygen by nasal cannula. CAT scan of the chest was done and it shows positive treatment response in terms of a left upper lobe mass. No new masses or lymphadenopathy. There is worsening groundglass pulmonary for this bilaterally, could be infection versus radiation pneumonitis. Review of Systems CONSTITUTIONAL: No fever, no malaise, no fatigue. HEENT: No recent visual problems or hearing problems. Denied any sore throat. CARDIOVASCULAR: No chest pain, no palpitations, no syncope. PULMONARYno hemoptysis. GASTROINTESTINAL: No diarrhea, no nausea, no vomiting, no abdominal pain. NEUROLOGICAL: No headaches, no weakness, no numbness. HEMATOLOGICAL: Denies any bleeding or petechiae. GENITOURINARY: Denies any burning micturition, frequency, or urgency. MUSCULOSKELETAL/RHEUMATOLOGICAL: Denies any joint pain, swelling, or any muscle pain. ENDOCRINE: Denies any polyuria or polydipsia. Past Medical History Past Medical History: Coronary Artery Disease (CAD), Cancer (squamous cell lung cancer stage IIIc), Myocardial Infarction ([place]), Pulmonary Embolus ([place]), Sleep Apnea/CPAP/BIPAP Additional Past Medical History / Comment(s): parkinson, dementia, left lung cancer-chemo and radiation [id number]-per pt william ph karmanos, parkinson disese Last Myocardial Infarction Date:: 1982 History of Any Multi-Drug Resistant Organisms: None Reported Past Surgical History: Coronary Bypass/CABG, Heart Catheterization Additional Past Surgical History / Comment(s): right hip surgery Past Anesthesia/Blood Transfusion Reactions: No Reported Reaction Past Psychological History: Bipolar Smoking Status: Former smoker Past Alcohol Use History: None Reported Additional Past Alcohol Use History / Comment(s): stopped smoking when had heart attack Past Drug Use History: None Reported - Past Family History Mother Additional Family Medical History / Comment(s): renal disease Medications and Allergies Home Medications Medication Instructions Recorded Confirmed Type Apixaban [Eliquis] 5 mg PO BID 11/03/22 12/10/22 History Aspirin EC [Ecotrin Low Dose] 81 mg PO DAILY 11/03/22 12/10/22 History Carbidopa-Levodopa ER 50-200Mg 2 tab PO TID 11/03/22 12/10/22 History [Sinemet CR 50-200 mg] Divalproex [Depakote] 250 mg PO TID 11/03/22 12/10/22 History Donepezil HCl [Aricept] 10 mg PO DAILY 11/03/22 12/10/22 History Furosemide [Lasix] 20 mg PO DAILY 11/03/22 12/10/22 History Levothyroxine Sodium [Synthroid] 50 mcg PO DAILY 11/03/22 12/10/22 History Metoprolol Succinate (ER) [Toprol 25 mg PO DAILY 11/03/22 12/10/22 History XL] OLANZapine [ZyPREXA] 10 mg PO DAILY 11/03/22 12/10/22 History QUEtiapine [SEROquel] 200 mg PO HS 11/03/22 12/10/22 History SILVER sulfADIAZINE Cream 1 applic TOPICAL BID 11/03/22 12/10/22 History [Silvadene 1% Cream] Simvastatin [Zocor] 40 mg PO HS 11/03/22 12/10/22 History amantadine HCL [Amantadine] 100 mg PO BID 11/03/22 12/10/22 History Ferrous Sulfate [Iron (65 MG 325 mg PO BID@1200,2000 #60 tab 11/10/22 12/10/22 Rx Elemental)] Pantoprazole [Protonix] 40 mg PO DAILY #30 tab 11/10/22 12/10/22 Rx Potassium Chloride ER [K-Dur 10] 10 meq PO DAILY 12/10/22 12/10/22 History Allergies Allergy/AdvReac Type Severity Reaction Status Date / Time No Known Allergies Allergy Verified 12/10/22 15:46 Physical Exam Vitals: Vital Signs Temp Pulse Pulse Resp BP BP Pulse Ox 12/11/22 09:45 92 L 12/11/22 09:35 79 18 110/65 89 L 12/11/22 05:00 97.4 F L 12/11/22 04:00 65 22 114/75 96 12/11/22 02:00 22 12/11/22 00:00 97.4 F L 68 22 129/77 94 L 12/10/22 20:45 97.8 F 65 24 97/59 92 L 12/10/22 20:02 71 24 117/72 97 12/10/22 20:00 97 12/10/22 19:44 77 22 118/75 96 12/10/22 18:00 80 24 126/77 95 12/10/22 16:00 80 28 H 118/79 97 12/10/22 15:00 82 28 H 102/68 95 12/10/22 14:10 86 104/74 95 12/10/22 12:53 86 12/10/22 12:43 87 12/10/22 12:39 110 H 40 H 93/54 85 L 12/10/22 12:08 97.8 F 93 40 H 119/74 85 L Intake and Output 12/10/22 12/11/22 12/11/22 22:59 06:59 14:59 Intake Total 68.886 90.187 89.951 Output Total 550 Balance -481.114 90.187 89.951 Intake: Intake, IV Titration 68.886 90.187 89.951 Amount Heparin Sod,Pork in 0.45% 68.886 90.187 89.951 NaCl 25,000 unit In 0.45 % NaCl 1 250ml.bag @ 9.7 UNITS/KG/HR 10.032 mls/hr IV .Q24H [facility] Rx#: [id number] Output: Urine 550 Other: Voiding Method Urinal Urinal Weight 103.419 kg 80.5 kg GENERAL: The patient is alert and oriented x3, patient is in mild respiratory distress well developed, well nourished. The patient is currently on 4 L of O2 nasal cannula HEENT: Pupils are round and equally reacting to light. EOMI. No scleral icterus. No conjunctival pallor. Normocephalic, atraumatic. No pharyngeal erythema. No thyromegaly. CARDIOVASCULAR: S1 and S2 present. No murmurs, rubs, or gallops. PULMONARY: Chest is clear to auscultation, no wheezing or crackles. ABDOMEN: Soft, nontender, nondistended, normoactive bowel sounds. No palpable organomegaly. MUSCULOSKELETAL: No joint swelling or deformity. EXTREMITIES: No cyanosis, clubbing, or pedal edema. NEUROLOGICAL: Gross neurological examination did not reveal any focal deficits. Examination of the skin revealed no evidence of significant rashes, suspicious appearing nevi or other concerning lesions. Results - Laboratory Findings CBC and BMP: 12/11/22 07:26 12/11/22 07:26 PT/INR, D-dimer PT 10.5 sec (9.0-12.0) 12/11/22 07:26 INR 1.0 (<1.2) 12/11/22 07:26 Abnormal lab findings: Abnormal Labs 12/10/22 12/10/22 12/10/22 12:17 12:17 12:17 RBC 3.47 L Hgb 9.5 L Hct 30.5 L MCHC RDW 20.5 H Neutrophils # 8.2 H Lymphocytes # 0.5 L APTT Potassium Carbon Dioxide 31 H BUN 25 H Glucose 109 H POC Glucose (mg/dL) Plasma Lactic Acid Gabo 3.1 H* Magnesium Troponin I Albumin 3.3 L 12/10/22 12/10/22 12/10/22 12:17 14:42 19:09 RBC Hgb Hct MCHC RDW Neutrophils # Lymphocytes # APTT 30.1 H Potassium Carbon Dioxide BUN Glucose POC Glucose (mg/dL) Plasma Lactic Acid Gabo Magnesium Troponin I 4.700 H* 4.490 H* Albumin 12/10/22 12/11/22 12/11/22 19:09 03:18 03:26 RBC Hgb Hct MCHC RDW Neutrophils # Lymphocytes # APTT 38.0 H Potassium Carbon Dioxide BUN Glucose POC Glucose (mg/dL) 146 H Plasma Lactic Acid Gabo Magnesium Troponin I 3.740 H* Albumin 0612/11/22 12/11/22 07:26 07:26 07:26 RBC 3.46 L Hgb 9.4 L Hct 30.7 L MCHC 30.5 L RDW 20.3 H Neutrophils # Lymphocytes # 0.5 L APTT 54.4 H Potassium 5.3 H Carbon Dioxide BUN 31 H Glucose 144 H POC Glucose (mg/dL) Plasma Lactic Acid Gabo Magnesium 2.9 H Troponin I Albumin - Diagnostic Findings Chest x-ray: image reviewed CT scan - chest: image reviewed Assessment and Plan Plan: Acute dyspnea, with development of bilateral ground glass pulmonary infiltrates, consider atypical pneumonia versus radiation pneumonitis. 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
[2022-12-11] MEDS: ATORVASTATIN 40 MG TAB PO SCH (12:43)
[2022-12-11] MEDS: FUROSEMIDE 10 MG/ML 4 ML VIAL IV SCH ×2 (12:43→20:59)
[2022-12-11] MEDS: DONEPEZIL 10 MG TAB PO SCH (12:43)
[2022-12-11] MEDS: FERROUS SULFATE 325 MG TAB PO SCH ×2 (12:43→20:58)
[2022-12-11] MEDS: METOPROLOL SUCCINATE (ER) 25 MG TAB.ER.24H PO SCH (12:43)
[2022-12-11] MEDS: CEFEPIME 2 GM in SODIUM CHLORIDE 0.9% 100 ML IVPB SCH ×2 (12:43→20:59)
[2022-12-11] MEDS: methylPREDNISolone SOD SUCCI 40 MG/ML 1 ML VIAL IV SCH ×2 (12:44→17:31)
[2022-12-11] MEDS: CARBIDOPA-LEVODOPA ER 50-200MG 1 EACH TABLET.ER PO SCH ×3 (12:44→21:01)
[2022-12-11] MEDS: DIVALPROEX 250 MG TABLET.DR PO SCH ×3 (12:45→21:01)
[2022-12-11] MEDS: OLANZapine 10 MG TAB PO SCH (12:46)
[2022-12-11] MEDS: LEVOTHYROXINE 50 MCG TAB PO SCH (12:47)
--- NOTE | 2022-12-11 14:10 | P.PN ---
Subjective 77-year-old male came in with complaints of shortness of breath has been going on for 4 days. Patient does have history of lung cancer for which she received treatment about a month ago. A CT was done yesterday which showed multiple areas of pneumonic infiltrates in both lungs significant on the left side. Chest x-ray is done today which showed similar findings. Patient also found to have elevated troponin of 4.7 patient had history of coronary artery disease and CABG 30 years ago. No recent history of cardiac catheterization. Patient de nied any fever chills patient doesn't have any leukocytosis. Patient does have elevated troponin of 4700 EKG showed right bundle branch block and there may be some nonspecific ST-T wave changes on the EKG as well. 12/11/2022 Patient was a evaluated by pulmonary and cardiology. Patient is believed to have pneumonia or pneumonitis secondary to radiation and chemotherapy. Patient is still on oxygen patient remains on systemic steroids patient has significant expiratory wheezing on exam. Patient remains on IV Lasix as well cardiology is not recommending cardiac catheterization because of his cancer and overall medical problems. Constitutional: Denied any fatigue denied any fever. Cardio vascular: denied any chest pain, palpitations Gastrointestinal denied any nausea vomiting Pulmonary: Still significantly short of breath Neurologic denied any new focal deficits All inpatient medications were reviewed and appropriate changes in these medications as dictated in the interval history and assessment and plan. PHYSICAL EXAMINATION: GENERAL: The patient is alert and oriented x3, patient is in mild respiratory distress well developed, well nourished. HEENT: Pupils are round and equally reacting to light. EOMI. No scleral icterus. No conjunctival pallor. Normocephalic, atraumatic. No pharyngeal erythema. No thyromegaly. CARDIOVASCULAR: S1 and S2 present. No murmurs, rubs, or gallops. PULMONARY: Chest is clear to auscultation, no wheezing or crackles. ABDOMEN: Soft, nontender, nondistended, normoactive bowel sounds. No palpable organomegaly. MUSCULOSKELETAL: No joint swelling or deformity. EXTREMITIES: No cyanosis, clubbing, or pedal edema. NEUROLOGICAL: Gross neurological examination did not reveal any focal deficits. SKIN: No rashes. Assessment and plan -Acute hypoxic respiratory failure: Etiology is not clear CT is consistent with pneumonic infiltrate and can be infectious pneumonia or inflammatory reaction secondary to chemotherapy. Patient will be started and continued on antibiotics cefepime and azithromycin. Patient to does have a bilateral pleural effusions consistent with CHF of a cardiology evaluated the patient patient is on IV Lasix -Possible severe sepsis with elevated lactic acid, infectious pneumonia cannot be ruled out -Congestive heart heart failure possibly acute systolic dysfunction from possible acute myocardial with elevated troponin, pending echocardiogram, cardiology evaluated the patient -Possible type I non-ST elevation microinfarction patient is being started on IV heparin although patient does take Eliquis at home -mild acute renal failure secondary to acute tubular necrosis can be secondary to hypoperfusion and hypotension -History of Parkinson's -Gases reveal reflux disease -Hyperlipidemia - coronary artery disease -Hypothyroidism Due to prophylaxis: Patient is presently on IV heparin Objective - Vital Signs Vital signs: Vital Signs Temp 97.4 F L 12/11/22 05:00 Pulse 95 12/11/22 11:45 Resp 28 H 12/11/22 11:45 BP 128/67 12/11/22 11:45 Pulse Ox 90 L 12/11/22 11:50 FiO2 Intake & Output 12/10/22 12/11/22 12/11/22 18:59 06:59 18:59 Intake Total 159.073 89.951 Output Total 550 Balance -390.927 89.951 Weight 103.419 kg 80.5 kg Intake: Intake, IV Titration 159.073 89.951 Amount Heparin Sod,Pork in 0.45% 159.073 89.951 NaCl 25,000 unit In 0.45 % NaCl 1 250ml.bag @ 9.7 UNITS/KG/HR 10.032 mls/hr IV .Q24H [facility] Rx#: [id number] Output: Urine 550 Other: Voiding Method Urinal # Bowel Movements 1 - Labs CBC & Chem 7: 12/11/22 07:26 12/11/22 07:26 Labs: Abnormal Lab Results - Last 24 Hours (Table) 12/10/22 12/10/22 12/10/22 Range/Units 14:42 19:09 19:09 RBC (4.30-5.90) m/uL Hgb (13.0-17.5) gm/dL Hct (39.0-53.0) % MCHC (31.0-37.0) g/dL RDW (11.5-15.5) % Lymphocytes # (1.0-4.8) k/uL APTT 30.1 H (22.0-30.0) sec Potassium (3.5-5.1) mmol/L BUN (9-20) mg/dL Glucose (74-99) mg/dL POC Glucose (mg/dL) (70-110) mg/dL Magnesium (1.6-2.3) mg/dL Troponin I 4.490 H* 3.740 H* (0.000-0.034) ng/mL 12/11/22 12/11/22 12/11/22 Range/Units 03:18 03:26 07:26 RBC 3.46 L (4.30-5.90) m/uL Hgb 9.4 L (13.0-17.5) gm/dL Hct 30.7 L (39.0-53.0) % MCHC 30.5 L (31.0-37.0) g/dL RDW 20.3 H (11.5-15.5) % Lymphocytes # 0.5 L (1.0-4.8) k/uL APTT 38.0 H (22.0-30.0) sec Potassium (3.5-5.1) mmol/L BUN (9-20) mg/dL Glucose (74-99) mg/dL POC Glucose (mg/dL) 146 H (70-110) mg/dL Magnesium (1.6-2.3) mg/dL Troponin I (0.000-0.034) ng/mL 12/11/22 12/11/22 Range/Units 07:26 07:26 RBC (4.30-5.90) m/uL Hgb (13.0-17.5) gm/dL Hct (39.0-53.0) % MCHC (31.0-37.0) g/dL RDW (11.5-15.5) % Lymphocytes # (1.0-4.8) k/uL APTT 54.4 H (22.0-30.0) sec Potassium 5.3 H (3.5-5.1) mmol/L BUN 31 H (9-20) mg/dL Glucose 144 H (74-99) mg/dL POC Glucose (mg/dL) (70-110) mg/dL Magnesium 2.9 H (1.6-2.3) mg/dL Troponin I (0.000-0.034) ng/mL
[2022-12-11] MEDS ORDERED: DEXTROSE 50% SYRINGE 50 ML IVP PRN ×2 (19:28)
[2022-12-11 19:59] LABS: Glucose,Whole Blood 172 mg/dL (70-110)
[2022-12-11] MEDS: INSULIN ASPART (NovoLOG) 100 UNIT/ML VIAL SQ SCH (20:03)
[2022-12-11] MEDS ORDERED: NON FORMULARY DRUG (Simvastatin 40 MG Tab) PO SCH (21:00)
[2022-12-11] MEDS: QUEtiapine 100 MG TAB PO SCH (21:01)
[2022-12-12] MEDS: methylPREDNISolone SOD SUCCI 40 MG/ML 1 ML VIAL IV SCH ×5 (00:44→23:15)
[2022-12-12] MEDS: HEPARIN SOD,PORK IN 0.45% NACL 25,000 UNIT in 0.45% NACL 1 250ML.BAG IV SCH (03:48)
[2022-12-12 05:40] LABS: Glucose,Whole Blood 169 mg/dL (70-110)
[2022-12-12] MEDS: INSULIN ASPART (NovoLOG) 100 UNIT/ML VIAL SQ SCH ×4 (06:12→20:56)
[2022-12-12] MEDS: LEVOTHYROXINE 50 MCG TAB PO SCH (06:48)
[2022-12-12] MEDS ORDERED: PANTOPRAZOLE 40 MG TABLET PO SCH (07:30)
[2022-12-12] MEDS: FUROSEMIDE 10 MG/ML 4 ML VIAL IV SCH ×2 (08:03→20:55)
[2022-12-12] MEDS: FAMOTIDINE 20 MG TAB PO SCH ×2 (08:04→20:55)
[2022-12-12] MEDS: OLANZapine 10 MG TAB PO SCH (08:04)
[2022-12-12] MEDS: DONEPEZIL 10 MG TAB PO SCH (08:04)
[2022-12-12] MEDS: METOPROLOL SUCCINATE (ER) 25 MG TAB.ER.24H PO SCH (08:04)
[2022-12-12] MEDS: DIVALPROEX 250 MG TABLET.DR PO SCH ×3 (08:04→20:56)
[2022-12-12] MEDS: ATORVASTATIN 40 MG TAB PO SCH (08:04)
[2022-12-12] MEDS: CARBIDOPA-LEVODOPA ER 50-200MG 1 EACH TABLET.ER PO SCH ×3 (08:04→20:55)
[2022-12-12] MEDS: ASPIRIN 81 MG PO SCH (08:04)
[2022-12-12] MEDS: AZITHROMYCIN 500 MG TAB PO SCH (08:04)
[2022-12-12] MEDS: CEFEPIME 2 GM in SODIUM CHLORIDE 0.9% 100 ML IVPB SCH ×2 (08:05→20:56)
[2022-12-12 10:24] LABS: Anisocytosis Moderate; HCT 31.3 % (39.0-53.0); HGB 9.5 gm/dL (13.0-17.5); Hypochromasia Marked; MCH 26.8 pg (25.0-35.0); MCHC 30.5 g/dL (31.0-37.0); MCV 88.1 fL (80.0-100.0); Mean Platelet Volume 7.8; Platelet Count 209 k/uL (150-450); RBC 3.55 m/uL (4.30-5.90); RDW 20.3 % (11.5-15.5)
[2022-12-12] MEDS: FERROUS SULFATE 325 MG TAB PO SCH ×2 (11:14→20:55)
[2022-12-12 11:31] VITALS: BMI 27.8
[2022-12-12 11:39] LABS: Glucose,Whole Blood 128 mg/dL (70-110)
[2022-12-12 11:50] LABS: African American GFR (CKD) 82 (>60 ml/min/1.73 sqM); Anion Gap 10 mmol/L; Blood Urea Nitrogen 39 mg/dL (9-20); Carbon Dioxide 31 mmol/L (22-30); Chloride 99 mmol/L (98-107); Glucose 147 mg/dL (74-99); Non-African American GFR(CKD) 71 (>60 ml/min/1.73 sqM); Potassium 4.2 mmol/L (3.5-5.1); Sodium 140 mmol/L (137-145)
--- NOTE | 2022-12-12 12:41 | CA ---
Transthoracic Echo Report Name: Alphonse Goode Age: 77 Gender: M : 1945 Exam Date: 12/12/2022 09:05 Exam Location: [facility] Ht (in): 67 Wt (lb): 177 Ordering Physician: Gavin Baker MD ([id number]) Attending/Referring Phys: [employer] Preparation Worker Alexander Mireles Procedure CPT: Indications: CAD Cardiac Hx: Limited study ordered. Technical Quality: Technically difficult study Contrast 1: Lumason Total Dose (mL): 5 Contrast 2: Agitated Saline Total Dose (mL): 10 MEASUREMENTS (Male / Female) Normal Values 2D ECHO LV Diastolic Diameter PLAX 1.3 cm 4.2 - 5.9 / 3.9 - 5.3 cm LV Systolic Diameter PLAX 1.5 cm IVS Diastolic Thickness 1.3 cm 0.6 - 1.0 / 0.6 - 0.9 cm LVPW Diastolic Thickness 6.1 cm 0.6 - 1.0 / 0.6 - 0.9 cm LV Relative Wall Thickness 5.7 RV Internal Dim ED PLAX 3.5 cm LVOT Diameter 2.1 cm Aortic Root Diameter 3.6 cm LA Systolic Diameter LX 2.3 cm 3.0 - 4.0 / 2.7 - 3.8 cm LV Diastolic Volume MOD BP 73.2 cm??? 67 - 155 / 56 - 104 cm??? LV Systolic Volume MOD BP 35.3 cm??? 22 - 58 / 19 - 49 cm??? LV Ejection Fraction MOD BP 51.7 % >= 55 % LV Diastolic Volume MOD 4C 78.7 cm??? LV Systolic Volume MOD 4C 29.3 cm??? LV Ejection Fraction MOD 4C 62.8 % LV Diastolic Length 4C 6.6 cm LV Systolic Length 4C 5.5 cm LV Diastolic Volume MOD 2C 67.7 cm??? LV Systolic Volume MOD 2C 38.2 cm??? LV Ejection Fraction MOD 2C 43.7 % LV Diastolic Length 2C 6.7 cm LV Systolic Length 2C 6.1 cm LA Volume 53.6 cm??? 18 - 58 / 22 - 52 cm??? Ascending Aorta Diameter 2.9 cm DOPPLER AV Peak Velocity 118.7 cm/s AV Peak Gradient 5.6 mmHg MV Peak Velocity 127.0 cm/s MV Peak Gradient 6.4 mmHg MV Mean Velocity 71.6 cm/s MV Mean Gradient 2.4 mmHg MV Velocity Time Integral 44.3 cm MR Peak Velocity 422.4 cm/s MR Peak Gradient 71.4 mmHg Mitral E Point Velocity 106.6 cm/s Mitral A Point Velocity 86.4 cm/s Mitral E to A Ratio 1.2 MV Deceleration Time 215.2 ms MV E' Velocity 8.7 cm/s Mitral E to MV E' Ratio 12.2 TR Peak Velocity 288.3 cm/s TR Peak Gradient 33.2 mmHg Right Ventricular Systolic Press 43.3 mmHg PV Peak Velocity 84.4 cm/s PV Peak Gradient 2.8 mmHg FINDINGS Left Ventricle Left ventricular ejection fraction is estimated at 40-45% Right Ventricle RSVP= 46mmhg Right Atrium Left Atrium Mitral Valve Aortic Valve Tricuspid Valve Pulmonic Valve Pericardium Aorta CONCLUSIONS Technically difficult study The ejection fraction appears to be in the range of 40-45% Previewed by: Dr. Howie Saravia MD (Electronically Signed) Final Date: 12 December 2022 12:40
--- NOTE | 2022-12-12 14:20 | P.PN ---
Subjective Progress Note Date: 12/12/22 This is a 77-year-old gentleman admitted with acute on chronic respiratory failure with development of bilateral groundglass pulmonary infiltrates, attributed to atypical pneumonia versus radiation pneumonitis in a patient with history of lung cancer stage III ,status post chemoradiation therapy and acute NSTEMI. Anticoagulated on IV heparin. Maintained on cefepime, Zithromax and IV steroids. Evaluated by cardiology with no further workup at this time recommended, secondary to patient's malignancy, with diuretics added,beta blockers resumed. Productive cough, clear sputum. Denies chills or sweats. Maintaining O2 sats in the 90s on 4 L nasal cannula. Objective - Vital Signs Vital signs: Vital Signs Temp 97.4 F L 12/12/22 11:08 Pulse 70 12/12/22 13:18 Resp 20 12/12/22 11:08 BP 111/62 12/12/22 11:08 Pulse Ox 93 L 12/12/22 11:08 FiO2 Intake & Output 12/11/22 12/12/22 12/12/22 18:59 06:59 18:59 Intake Total 449.951 250 118 Output Total 1150 1075 400 Balance -700.049 -825 -282 Weight 80.7 kg 80.7 kg Intake: Intake, IV Titration 89.951 250 Amount Heparin Sod,Pork in 0.45% 89.951 250 NaCl 25,000 unit In 0.45 % NaCl 1 250ml.bag @ 9.7 UNITS/KG/HR 10.032 mls/hr IV .Q24H [facility] Rx#: [id number] Oral 360 118 Output: Urine 1150 1075 400 Other: Voiding Method Urinal Urinal # Bowel Movements 1 1 - Exam GENERAL: The patient is alert and oriented x3, patient is in mild respiratory distress well developed, well nourished. HEENT: Normocephalic, atraumatic ,Pupils are round and equally reacting to light. EOMI. No scleral icterus. No conjunctival pallor. CARDIOVASCULAR: S1 and S2 present. Systolic murmur,no rubs, or gallops. PULMONARY: Chest is clear to auscultation, no wheezing or crackles. ABDOMEN: Soft, nontender, nondistended, normoactive bowel sounds. No palpable organomegaly. EXTREMITIES: No cyanosis, clubbing, or pedal edema. NEUROLOGICAL: Gross neurological examination did not reveal any focal deficits. SKIN: No rashes. - Labs CBC & Chem 7: 12/12/22 09:56 12/12/22 09:56 Labs: Abnormal Lab Results - Last 24 Hours (Table) 12/11/22 12/12/22 12/12/22 Range/Units 19:58 05:39 09:56 RBC 3.55 L (4.30-5.90) m/uL Hgb 9.5 L (13.0-17.5) gm/dL Hct 31.3 L (39.0-53.0) % MCHC 30.5 L (31.0-37.0) g/dL RDW 20.3 H (11.5-15.5) % APTT (22.0-30.0) sec Carbon Dioxide (22-30) mmol/L BUN (9-20) mg/dL Glucose (74-99) mg/dL POC Glucose (mg/dL) 172 H 169 H (70-110) mg/dL 12/12/22 12/12/22 12/12/22 Range/Units 09:56 09:56 11:32 RBC (4.30-5.90) m/uL Hgb (13.0-17.5) gm/dL Hct (39.0-53.0) % MCHC (31.0-37.0) g/dL RDW (11.5-15.5) % APTT 45.6 H (22.0-30.0) sec Carbon Dioxide 31 H (22-30) mmol/L BUN 39 H (9-20) mg/dL Glucose 147 H (74-99) mg/dL POC Glucose (mg/dL) 128 H (70-110) mg/dL Microbiology - Last 24 Hours (Table) 12/10/22 12:33 Blood Culture Gram Stain - Preliminary Blood 12/10/22 12:17 Blood Culture - Preliminary Blood Assessment and Plan Assessment: Acute on chronic hypoxic respiratory failure, possible atypical pneumonia, possible radiation pneumonitis History of Lung cancer, stage III, status post chemo. and radiation therapy Acute NSTEMI Right bundle-branch block CT, history of CABG Hypertension Hyperlipidemia Hypothyroidism Parkinson's disease Plan: Continue on current medication regime ,monitoring and symptomatic t reatment. Echo pending.Aggressive pulmonary toileting, maintain broad-spectrum antibiotics, IV steroids. PT/OT consulted. Prognosis guarded given multiple complex medical issues. The impression and plan of care has been dictated as directed. : I performed a history and examination of this patient, discussed the same with the dictator. I agree with the dictator's note ,documented as a scribe. Any additional findings or plans will be noted.
--- NOTE | 2022-12-12 14:39 | P.PN ---
Subjective Progress Note Date: 12/12/22 This 77-year-old male patient came into the hospital because of worsening shortness of breath. He has limited cough. No significant sputum production. 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 He was in the hospital back in October 2022 for an acute non-STEMI. Is known to have coronary disease and he has undergone bypass surgery many years back. His white cell count at 6.3 with a hemoglobin of 9.3. His troponin in the emergency was was high at 4.4 is down trending. He has no chest pain. EKG showing a ri ght bundle branch block pattern and was present on previous admissions. BUN is at 31 with a creatinine of 0.9. Lactic acid level is at 2.9. The patient is currently on IV heparin. Started on Rocephin and Zithromax. No altered mentation. Currently is on 4 L of oxygen by nasal cannula. CAT scan of the chest was done and it shows positive treatment response in terms of a left upper lobe mass. No new masses or lymphadenopathy. There is worsening groundglass pulmonary for this bilaterally, could be infection versus radiation pneumonitis. The patient is seen today 12/12/2022 in follow-up on the selective care unit. He is currently resting comfortably in bed. Awake and alert in no acute distress. He is maintaining O2 saturations in the low 90s on 4 L/m per nasal cannula. He's been afebrile. Hemodynamically stable. Echocardiogram reveals impaired left ventricular systolic function with ejection fraction 40-45%. Blood culture revealed no growth. White count 8.0. Hemoglobin 9.5. Platelets 209. Sodium 140. Potassium 4.2. Bicarb 31. BUN 39. Creatinine 1.01. Glucose 147. He is continued on anti-vaccine form of cefepime and azithromycin. On IV Solu-Medrol. Continued on a heparin drip. Peak troponin 4.70. Remains on IV diuretics. Currently in a -1.5 L balance. Objective - Vital Signs Vital signs: Vital Signs Temp 97.4 F L 12/12/22 11:08 Pulse 70 12/12/22 13:18 Resp 20 12/12/22 11:08 BP 111/62 12/12/22 11:08 Pulse Ox 93 L 12/12/22 11:08 FiO2 Intake & Output 12/11/22 12/12/22 12/12/22 18:59 06:59 18:59 Intake Total 449.951 250 236 Output Total 1150 1075 400 Balance -700.049 -825 -164 Weight 80.7 kg 80.7 kg Intake: Intake, IV Titration 89.951 250 Amount Heparin Sod,Pork in 0.45% 89.951 250 NaCl 25,000 unit In 0.45 % NaCl 1 250ml.bag @ 9.7 UNITS/KG/HR 10.032 mls/hr IV .Q24H [facility] Rx#: [id number] Oral 360 236 Output: Urine 1150 1075 400 Other: Voiding Method Urinal Urinal # Bowel Movements 1 1 - Exam GENERAL EXAM: Alert, pleasant 77-year-old male patient, on 4 L nasal cannula, comfortable in no apparent distress. HEAD: Normocephalic. EYES: Normal reaction of pupils, equal size. NOSE: Clear with pink turbinates. THROAT: No erythema or exudates. NECK: No masses, no JVD. CHEST: No chest wall deformity. LUNGS: Equal air entry with bilateral crackles in the posterior bases. CVS: S1 and S2 normal with no audible murmur, regular rhythm. ABDOMEN: No hepatosplenomegaly, normal bowel sounds, no guarding or rigidity. SPINE: No scoliosis or deformity SKIN: No rashes CENTRAL NERVOUS SYSTEM: No focal deficits, tone is normal in all 4 extremities. EXTREMITIES: There is 1+ peripheral edema. No clubbing, no cyanosis. Peripheral pulses are intact. - Labs CBC & Chem 7: 12/12/22 09:56 12/12/22 09:56 Labs: Abnormal Lab Results - Last 24 Hours (Table) 12/11/22 12/12/22 12/12/22 Range/Units 19:58 05:39 09:56 RBC 3.55 L (4.30-5.90) m/uL Hgb 9.5 L (13.0-17.5) gm/dL Hct 31.3 L (39.0-53.0) % MCHC 30.5 L (31.0-37.0) g/dL RDW 20.3 H (11.5-15.5) % APTT (22.0-30.0) sec Carbon Dioxide (22-30) mmol/L BUN (9-20) mg/dL Glucose (74-99) mg/dL POC Glucose (mg/dL) 172 H 169 H (70-110) mg/dL 12/12/22 12/12/22 12/12/22 Range/Units 09:56 09:56 11:32 RBC (4.30-5.90) m/uL Hgb (13.0-17.5) gm/dL Hct (39.0-53.0) % MCHC (31.0-37.0) g/dL RDW (11.5-15.5) % APTT 45.6 H (22.0-30.0) sec Carbon Dioxide 31 H (22-30) mmol/L BUN 39 H (9-20) mg/dL Glucose 147 H (74-99) mg/dL POC Glucose (mg/dL) 128 H (70-110) mg/dL Microbiology - Last 24 Hours (Table) 12/10/22 12:33 Blood Culture Gram Stain - Final Blood 12/10/22 12:17 Blood Culture - Preliminary Blood Assessment and Plan Assessment: Acute dyspnea, with development of bilateral ground glass pulmonary infiltrates, consider atypical pneumonia versus radiation pneumonitis. 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 Acute hypoxic respiratory failure currently on 4 L of O2 nasal cannula Coronary artery disease with previous bypass surgery Acute NSTEMI currently on IV heparin, impaired left ventricular systolic function with ejection fraction 40-45% Right bundle-branch block pattern, unchanged Hyperlipidemia Hypothyroidism Parkinson disease Plan: The patient was seen and evaluated Echocardiogram, medications and labs reviewed Remains on IV diuretics Currently in a negative balance Continued on Solu-Medrol ProCalcitonin pending Continue antibiotics for now Titrate the FiO2 as tolerated Follow-up chest x-ray in a.m. We will continue to follow I have personally seen and examined the patient, performed the documentation and the assessment and plan as written. Number of minutes spent on the visit: 10.
--- NOTE | 2022-12-12 14:46 | P.PN ---
Subjective History of Present Illness: The patient is a 77-year-old male with a known history of CAD, status post CABG, followed by Dr. Hill, diagnosed with lung CA in July, received radiation and undergoing chemotherapy, followed by Dr. Oconnell who presented with symptoms of progressive dyspnea, cough and fatigue. His troponin was noted to be elevated. He had no associated chest discomfort, peripheral edema, PND or orthopnea. The patient was admitted in October with troponin elevation at that time underwent an MPI that showed no evidence of stress-induced ischemia. His echocardiogram showed an ejection fraction of 50% with mild mitral regurgitation. The patient underwent CABG about 30 years ago. He stopped smoking at that time. He has no history of malignant arrhythmia. His coronary risk factors are positive for hypertension and hyperlipidemia, he is a nondiabetic. He has a prior history of pulmonary embolism and has been anticoagulated. Medications: Aspirin, Toprol-XL 25 mg daily, Lasix 20 mg daily, Sinemet, aspirin, simvastatin 40 mg daily,Eliquis 5 mg twice a day. 12/12 Patient seen and examined. Patient denies any chest pain or pressure. He states his shortness breath is slowly been improving. Echocardiogram performed with mild decrease in ejection fraction of 40-45%, previously in October 50%. Blood pressure is borderline in the 90s to 100s. Physical Examination: Vitals reviewed Head: Normocephalic. Eyes: Sclerae nonicteric. Neck: Good carotid upstroke, no bruit, no jugular venous distention. Lungs: Bilateral rhonchi and crackles Heart: Regular rate and rhythm, S1-S2, no S3, no rub. Systolic ejection murmur. Abdomen: Soft nontender, positive bowel sounds no organomegaly. Extremities: No edema, intact distal pulses. EKG: Sinus mechanism, rate of 92, right bundle branch block with left axis deviation Impression: 1. Non-STEMI with no symptoms of chest discomfort 2. Lung cancer receiving chemotherapy 3. Possible pneumonia 4. History of CABG 30 years ago 5. History of hypertension 6. History of hyperlipidemia 7. History of Parkinson disease Plan: Patient not a good interventional candidate currently with active malignancy and currently not having a chest pain. Continue with medical therapy. Continue with diuretics. It appears to slowly be improving. Continue at least 1 more day of diuretics and monitor response. Consider holding Lipitor if lower extremity weakness felt related to statin. Objective - Vital Signs Vital signs: Vital Signs Temp 97.4 F L 12/12/22 11:08 Pulse 70 12/12/22 13:18 Resp 20 12/12/22 11:08 BP 111/62 12/12/22 11:08 Pulse Ox 93 L 12/12/22 11:08 FiO2 Intake & Output 12/11/22 12/12/22 12/12/22 18:59 06:59 18:59 Intake Total 449.951 250 236 Output Total 1150 1075 400 Balance -700.049 -825 -164 Weight 80.7 kg 80.7 kg Intake: Intake, IV Titration 89.951 250 Amount Heparin Sod,Pork in 0.45% 89.951 250 NaCl 25,000 unit In 0.45 % NaCl 1 250ml.bag @ 9.7 UNITS/KG/HR 10.032 mls/hr IV .Q24H [facility] Rx#: [id number] Oral 360 236 Output: Urine 1150 1075 400 Other: Voiding Method Urinal Urinal # Bowel Movements 1 1 - Labs CBC & Chem 7: 12/12/22 09:56 12/12/22 09:56 Labs: Abnormal Lab Results - Last 24 Hours (Table) 12/11/22 12/12/22 12/12/22 Range/Units 19:58 05:39 09:56 RBC 3.55 L (4.30-5.90) m/uL Hgb 9.5 L (13.0-17.5) gm/dL Hct 31.3 L (39.0-53.0) % MCHC 30.5 L (31.0-37.0) g/dL RDW 20.3 H (11.5-15.5) % APTT (22.0-30.0) sec Carbon Dioxide (22-30) mmol/L BUN (9-20) mg/dL Glucose (74-99) mg/dL POC Glucose (mg/dL) 172 H 169 H (70-110) mg/dL 12/12/22 12/12/22 12/12/22 Range/Units 09:56 09:56 11:32 RBC (4.30-5.90) m/uL Hgb (13.0-17.5) gm/dL Hct (39.0-53.0) % MCHC (31.0-37.0) g/dL RDW (11.5-15.5) % APTT 45.6 H (22.0-30.0) sec Carbon Dioxide 31 H (22-30) mmol/L BUN 39 H (9-20) mg/dL Glucose 147 H (74-99) mg/dL POC Glucose (mg/dL) 128 H (70-110) mg/dL Microbiology - Last 24 Hours (Table) 12/10/22 12:33 Blood Culture Gram Stain - Final Blood 12/10/22 12:17 Blood Culture - Preliminary Blood
[2022-12-12 16:46] LABS: Glucose,Whole Blood 188 mg/dL (70-110)
[2022-12-12 20:27] LABS: Glucose,Whole Blood 184 mg/dL (70-110)
[2022-12-12] MEDS: APIXABAN 5 MG TAB PO SCH (20:55)
[2022-12-12] MEDS: QUEtiapine 100 MG TAB PO SCH (20:55)
[2022-12-13] MEDS: INSULIN ASPART (NovoLOG) 100 UNIT/ML VIAL SQ SCH ×4 (05:46→21:35)
[2022-12-13] MEDS: methylPREDNISolone SOD SUCCI 40 MG/ML 1 ML VIAL IV SCH ×3 (06:08→17:42)
[2022-12-13] MEDS: LEVOTHYROXINE 50 MCG TAB PO SCH (06:09)
[2022-12-13 06:22] LABS: Glucose,Whole Blood 136 mg/dL (70-110)
--- NOTE | 2022-12-13 08:45 | XR ---
EXAMINATION TYPE: XR chest 1V portable DATE OF EXAM: 12/13/2022 COMPARISON: 12/10/2022 HISTORY: Shortness of breath TECHNIQUE: Single frontal view of the chest is obtained. FINDINGS: Bilateral areas of consolidation. There are small pleural effusion. Postoperative change. No pneumothorax. Arthropathy of the shoulders. Diffuse bilateral infiltrates are stable IMPRESSION: 1. Diffuse bilateral infiltrates are stable correlate for pneumonia. 2. Left upper lobe consolidation corresponds to the CT report of lung mass.
[2022-12-13] MEDS: METOPROLOL SUCCINATE (ER) 25 MG TAB.ER.24H PO SCH (08:50)
[2022-12-13] MEDS: APIXABAN 5 MG TAB PO SCH ×2 (08:50→21:34)
[2022-12-13] MEDS: DONEPEZIL 10 MG TAB PO SCH (08:50)
[2022-12-13] MEDS: DIVALPROEX 250 MG TABLET.DR PO SCH ×3 (08:50→21:34)
[2022-12-13] MEDS: CARBIDOPA-LEVODOPA ER 50-200MG 1 EACH TABLET.ER PO SCH ×3 (08:50→21:34)
[2022-12-13] MEDS: FUROSEMIDE 10 MG/ML 4 ML VIAL IV SCH ×2 (08:51→21:32)
[2022-12-13] MEDS: OLANZapine 10 MG TAB PO SCH (08:51)
[2022-12-13] MEDS: CEFEPIME 2 GM in SODIUM CHLORIDE 0.9% 100 ML IVPB SCH ×2 (08:51→21:32)
[2022-12-13] MEDS: ATORVASTATIN 40 MG TAB PO SCH (08:51)
[2022-12-13] MEDS: FAMOTIDINE 20 MG TAB PO SCH ×2 (08:51→21:34)
[2022-12-13] MEDS: AZITHROMYCIN 500 MG TAB PO SCH (08:51)
[2022-12-13] MEDS: ASPIRIN 81 MG PO SCH (08:51)
[2022-12-13 11:41] LABS: Glucose,Whole Blood 140 mg/dL (70-110)
[2022-12-13] MEDS: FERROUS SULFATE 325 MG TAB PO SCH ×2 (12:58→21:33)
--- NOTE | 2022-12-13 14:24 | P.PN ---
Subjective Progress Note Date: 12/13/22 Principal diagnosis: Acute nonspecific pneumonitis, stage III lung cancer. This 77-year-old male patient came into the hospital because of worsening shortness of breath. He has limited cough. No significant sputum production. 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 He was in the hospital back in October 2022 for an acute non-STEMI. Is known to have coronary disease and he has undergone bypass surgery many years back. His white cell count at 6.3 with a hemoglobin of 9.3. His troponin in the emergency was was high at 4.4 is down trending. He has no chest pain. EKG showing a r ight bundle branch block pattern and was present on previous admissions. BUN is at 31 with a creatinine of 0.9. Lactic acid level is at 2.9. The patient is currently on IV heparin. Started on Rocephin and Zithromax. No altered mentation. Currently is on 4 L of oxygen by nasal cannula. CAT scan of the chest was done and it shows positive treatment response in terms of a left upper lobe mass. No new masses or lymphadenopathy. There is worsening groundglass pulmonary for this bilaterally, could be infection versus radiation pneumonitis. The patient is seen today 12/12/2022 in follow-up on the selective care unit. He is currently resting comfortably in bed. Awake and alert in no acute distress. He is maintaining O2 saturations in the low 90s on 4 L/m per nasal cannula. He's been afebrile. Hemodynamically stable. Echocardiogram reveals impaired left ventricular systolic function with ejection fraction 40-45%. Blood culture revealed no growth. White count 8.0. Hemoglobin 9.5. Platelets 209. Sodium 140. Potassium 4.2. Bicarb 31. BUN 39. Creatinine 1.01. Glucose 147. He is continued on anti-vaccine form of cefepime and azithromycin. On IV Solu-Medrol. Continued on a heparin drip. Peak troponin 4.70. Remains on IV diuretics. Currently in a -1.5 L balance. Reevaluated today on 12/13/2022, patient is feeling better, breathing easier, chest x-ray is showing improvement. Patient remains on diuretics steroids and on antibiotics. Steadily improving, he is now on 4 L nasal cannula, O2 saturation is in the 90s. Hence I'm recommending no change from the present treatment plan since the patient is responding well to the present medications. Urine Legionella antigen was negative Objective - Vital Signs Vital signs: Vital Signs Temp 97.5 F L 12/13/22 08:00 Pulse 65 12/13/22 08:00 Resp 18 12/13/22 08:00 BP 98/55 12/13/22 08:00 Pulse Ox 90 L 12/13/22 08:00 FiO2 Intake & Output 12/12/22 12/13/22 12/13/22 18:59 06:59 18:59 Intake Total 236 400 118 Output Total 600 1000 Balance -364 -600 118 Weight 80.7 kg 100.4 kg Intake: Intake, IV Titration 100 Amount Cefepime 2 gm In Sodium 100 Chloride 0.9% 100 ml @ 25 mls/hr IVPB Q12HR [facility] Rx #:[id number] Oral 236 300 118 Output: Urine 600 1000 Other: Voiding Method Urinal Urinal # Bowel Movements 1 - Exam Physical Exam: Revealed a 77-year-old white male in no distress on 4 L nasal cannula Head: Atraumatic normocephalic. HEENT:[Neck is supple.] [No neck masses.] [No thyromegaly.] [No JVD.] Chest: [Symmetrical chest expansion crackles at the bases no rhonchi and no wheezes Cardiac Exam: [Normal S1 and S2, no S3 gallop, no murmur.] Abdomen: [Soft, nontender, no megaly, no rebound, no guarding, normal bowel sounds.] Extremities: [No clubbing, 1+ bipedal edema, no cyanosis.] Neurological Exam: [No focal neurologic deficit.] Alert oriented 3. Psychiatric: Normal mood affect and normal status examination. Skin: No rashes. - Labs CBC & Chem 7: 12/12/22 09:56 12/12/22 09:56 Labs: Abnormal Lab Results - Last 24 Hours (Table) 12/12/22 12/12/22 12/13/22 Range/Units 16:44 20:26 06:20 APTT (22.0-30.0) sec POC Glucose (mg/dL) 188 H 184 H 136 H (70-110) mg/dL 12/13/22 12/13/22 Range/Units 10:28 11:29 APTT 21.5 L (22.0-30.0) sec POC Glucose (mg/dL) 140 H (70-110) mg/dL Microbiology - Last 24 Hours (Table) 12/10/22 12:17 Blood Culture - Preliminary Blood 12/10/22 12:33 Blood Culture Gram Stain - Final Blood Blood Culture - Final Coagulase Negative Staph Assessment and Plan Assessment: Impression: Acute dyspnea, with development of bilateral ground glass pulmonary infiltrates, consider atypical pneumonia versus radiation pneumonitis. 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
--- NOTE | 2022-12-13 15:02 | P.CONS ---
History of Present Illness - Reason for Consult Consult date: 12/13/22 known Requesting physician: Gavin Joyce - Chief Complaint SOB - History of Present Illness Mister Goode said very pleasant patient of Dr. Oconnell, initially seen at [facility] 07/15/22 for syncope, found to be hypotensive and hypoxic. CTA showed bilateral PE and the left upper lobe lung mass 5.9 x 5.8 x 6.8, enlarged AP window, mediastinal lymphadenopathy up to 14 mm. Transferred to [place] under went EKG ROS 07/16/22, placed on Ahlquist. 08/16/22 biopsy left upper lobe mass positive for poorly differentiated squamous cell carcinoma. Guardant 360 liquid biopsy no actionable mutations, TMB 28.32, MSI negative. 08/18/22 brain MRI negative for metastatic disease. Staging PET scan 08/30/22 showed uptake in the left upper lobe mass, left supraclavicular lymph node and AP nodes, uptake at L4-L5 metastases versus severe facet arthropathy, MRI was negative for spine metastases. 09/29/22 started weekly carbo/Taxol with concurrent radiation. He missed a chemotherapy and some radiation when he was inpatient for dyspnea, hypotension and anemia. EGD and colonoscopy were done, no active bleeding, started on oral iron. He completed radiation 11/18/22, chemotherapy 11/17/22, he received parenteral iron 2 doses last given 11/30. Treatment follow-up CT of the chest 12/09 reports positive treatment response to the left upper lobe lung mass, now is ill defined, measures 4.7 x 3 cm, no new masses or adenopathy. Worsening groundglass opacities bilaterally with additional areas of consolidation in the left lung are seen. Patient reporting shortness of breath, cough, fatigue, sputum is thick, white, noted for several weeks, worse the last several days, worsened with heat. Denied fevers, chills, nausea, vomiting, abdominal pain or cramping, acute changes in bowel or bladder habits, no pain to report. Review of Systems 10 point review of systems is negative except as stated in HPI Past Medical History Past Medical History: Coronary Artery Disease (CAD), Cancer (squamous cell lung cancer stage IIIc), Myocardial Infarction ([place]), Pulmonary Embolus (PE), Sleep Apnea/CPAP/BIPAP Additional Past Medical History / Comment(s): parkinson, dementia, left lung cancer-chemo and radiation [id number] pt william clarke mikhail, parkinson disese Last Myocardial Infarction Date:: 1982 History of Any Multi-Drug Resistant Organisms: None Reported Past Surgical History: Coronary Bypass/CABG, Heart Catheterization Additional Past Surgical History / Comment(s): right hip surgery Past Anesthesia/Blood Transfusion Reactions: No Reported Reaction Past Psychological History: Bipolar Smoking Status: Former smoker Past Alcohol Use History: None Reported Additional Past Alcohol Use History / Comment(s): stopped smoking when had heart attack Past Drug Use History: None Reported - Past Family History Mother Additional Family Medical History / Comment(s): renal disease Medications and Allergies Home Medications Medication Instructions Recorded Confirmed Type Apixaban [Eliquis] 5 mg PO BID 11/03/22 12/10/22 History Aspirin EC [Ecotrin Low Dose] 81 mg PO DAILY 11/03/22 12/10/22 History Carbidopa-Levodopa ER 50-200Mg 2 tab PO TID 11/03/22 12/10/22 History [Sinemet CR 50-200 mg] Divalproex [Depakote] 250 mg PO TID 11/03/22 12/10/22 History Donepezil HCl [Aricept] 10 mg PO DAILY 11/03/22 12/10/22 History Furosemide [Lasix] 20 mg PO DAILY 11/03/22 12/10/22 History Levothyroxine Sodium [Synthroid] 50 mcg PO DAILY 11/03/22 12/10/22 History Metoprolol Succinate (ER) [Toprol 25 mg PO DAILY 11/03/22 12/10/22 History XL] OLANZapine [ZyPREXA] 10 mg PO DAILY 11/03/22 12/10/22 History QUEtiapine [SEROquel] 200 mg PO HS 11/03/22 12/10/22 History SILVER sulfADIAZINE Cream 1 applic TOPICAL BID 11/03/22 12/10/22 History [Silvadene 1% Cream] Simvastatin [Zocor] 40 mg PO HS 11/03/22 12/10/22 History amantadine HCL [Amantadine] 100 mg PO BID 11/03/22 12/10/22 History Ferrous Sulfate [Iron (65 MG 325 mg PO BID@1200,2000 #60 tab 11/10/22 12/10/22 Rx Elemental)] Pantoprazole [Protonix] 40 mg PO DAILY #30 tab 11/10/22 12/10/22 Rx Potassium Chloride ER [K-Dur 10] 10 meq PO DAILY 12/10/22 12/10/22 History Allergies Allergy/AdvReac Type Severity Reaction Status Date / Time No Known Allergies Allergy Verified 12/10/22 15:46 Physical Exam Vitals: Vital Signs Temp Pulse Resp BP Pulse Ox 12/13/22 08:00 97.5 F L 65 18 98/55 90 L 12/13/22 04:00 97.8 F 64 22 104/62 93 L 12/13/22 02:00 70 20 12/13/22 00:00 98.0 F 70 20 106/64 94 L 12/12/22 20:00 98.1 F 67 20 123/68 94 L 12/12/22 15:23 97.8 F 64 22 118/59 93 L 12/12/22 13:18 70 12/12/22 11:08 97.4 F L 70 20 111/62 93 L Intake and Output 12/12/22 12/13/22 12/13/22 22:59 06:59 14:59 Intake Total 400 Output Total 400 800 Balance -400 -400 Intake: Intake, IV Titration 100 Amount Cefepime 2 gm In Sodium 100 Chloride 0.9% 100 ml @ 25 mls/hr IVPB Q12HR [facility] Rx #:[id number] Oral 300 Output: Urine 400 800 Other: Voiding Method Urinal Urinal Weight 100.4 kg - Constitutional General appearance: cooperative, no acute distress, obese - EENT Eyes: anicteric sclerae, EOMI ENT: hard of hearing, normal oropharynx - Neck Neck: no lymphadenopathy - Respiratory Respiratory: bilateral: diminished - Cardiovascular Rhythm: regular Heart sounds: normal: S1, S2 Abnormal Heart Sounds: no systolic murmur, no diastolic murmur, no rub, no S3 Gallop, no S4 Gallop, no click, no other - Gastrointestinal General gastrointestinal: no absent bowel sounds, no decreased bowel sounds, no distended, no hepatomegaly, no hyperactive bowel sounds, normal bowel sounds, no organomegaly, no rigid, no scaphoid, soft, no splenomegaly, no tenderness, no u mbilical hernia, no ventral hernia - Integumentary Integumentary: normal - Neurologic Neurologic: CNII-XII intact (Grossly) - Musculoskeletal Musculoskeletal: generalized weakness, strength equal bilaterally - Psychiatric Psychiatric: A&O x's 3, appropriate affect, intact judgment & insight Results CBC & Chem 7: 12/12/22 09:56 12/12/22 09:56 Labs: Abnormal Lab Results - Last 24 Hours (Table) 12/12/22 12/12/22 12/12/22 Range/Units 09:56 09:56 09:56 RBC 3.55 L (4.30-5.90) m/uL Hgb 9.5 L (13.0-17.5) gm/dL Hct 31.3 L (39.0-53.0) % MCHC 30.5 L (31.0-37.0) g/dL RDW 20.3 H (11.5-15.5) % APTT 45.6 H (22.0-30.0) sec Carbon Dioxide 31 H (22-30) mmol/L BUN 39 H (9-20) mg/dL Glucose 147 H (74-99) mg/dL POC Glucose (mg/dL) (70-110) mg/dL 12/12/22 12/12/22 12/12/22 Range/Units 11:32 16:44 20:26 RBC (4.30-5.90) m/uL Hgb (13.0-17.5) gm/dL Hct (39.0-53.0) % MCHC (31.0-37.0) g/dL RDW (11.5-15.5) % APTT (22.0-30.0) sec Carbon Dioxide (22-30) mmol/L BUN (9-20) mg/dL Glucose (74-99) mg/dL POC Glucose (mg/dL) 128 H 188 H 184 H (70-110) mg/dL 12/13/22 Range/Units 06:20 RBC (4.30-5.90) m/uL Hgb (13.0-17.5) gm/dL Hct (39.0-53.0) % MCHC (31.0-37.0) g/dL RDW (11.5-15.5) % APTT (22.0-30.0) sec Carbon Dioxide (22-30) mmol/L BUN (9-20) mg/dL Glucose (74-99) mg/dL POC Glucose (mg/dL) 136 H (70-110) mg/dL Microbiology - Last 24 Hours (Table) 12/10/22 12:17 Blood Culture - Preliminary Blood 12/10/22 12:33 Blood Culture Gram Stain - Final Blood Blood Culture - Final Coagulase Negative Staph Comments: Echo report reviewed Chest x-ray: report reviewed CT scan - chest: report reviewed Assessment and Plan (1) Hypoxia Current Visit: Yes Status: Acute Priority: High Code(s): R09.02 - HYPOXEMIA SNOMED Code(s): 570771952 (2) Squamous cell carcinoma lung Current Visit: Yes Status: Acute Priority: Medium Code(s): C34.90 - MALIGNANT NEOPLASM OF UNSP PART OF UNSP BRONCHUS OR LUNG SNOMED Code(s): 093554351 Plan: Hypoxia -Oxygen saturation have improved since admit-85% on admit, currently 93%. Joyce nt is currently on 4 L nasal cannula -Reviewed Pulmonary assessment, impression and plan. Infection versus radiation pneumonitis are in the differential after their review of the recent CT of the chest. Antibiotic and steroids are ordered. -Reviewed Cardiology assessment, impression and plan. Echo LVEF 40-45%. Diuretics and beta rafy added. Pt is on heparin drip for elevated troponin. Patient is a treated stage IIIc squamous cell lung cancer so, if any aggressive cardiac workup is needed it is certainly reasonable to do so, if able to be done from a Cardiopulmonary standpoint. Squamous cell carcinoma of the lung stage IIIc -Status post concurrent chemoradiation completion 3 weeks ago, with excellent response on treatment follow-up CT scan -May start maintenance durvalumab once current condition is treated, patient recovered and he is reassessed by his Oncologist -Follow-up with primary Medical Oncologist after DC from hospital or, after discharge from rehabilitation (patient states he's prior to going to do some after this hospitalization) attests: I have seen and examined patient, performed H&P and developed impression and plan of care. Discussed with dictator. Agree with documentation, dictated as a scribe
--- NOTE | 2022-12-13 15:26 | P.PN ---
Subjective Progress Note Date: 12/13/22 This is a 77-year-old gentleman admitted with acute on chronic respiratory failure with development of bilateral groundglass pulmonary infiltrates, attributed to atypical pneumonia versus radiation pneumonitis in a patient with history of lung cancer stage III ,status post chemoradiation therapy and acute NSTEMI. Anticoagulated on IV heparin. Maintained on cefepime, Zithromax and IV steroids. Evaluated by cardiology with no further workup at this time recommended, secondary to patient's malignancy, with diuretics added,beta blockers resumed. Productive cough, clear sputum. Denies chills or sweats. Maintaining O2 sats in the 90s on 4 L nasal cannula. 12/13/2022 continues on antibiotics, nebulized bronchodilators, steroids and diuretics. shortness of breath improving. Maintaining O2 sats in the 90s on 4 L nasal cannula. Urine Legionella antigen negative. Chest x-ray reporting stable diffuse bilateral infiltrates. Left upper lobe consolidation corresponds to CT report of lung mass. Evaluated by oncology with recommendations noted and appreciated. Denies chest pain, palpitations. Diuresing well on Lasix IV push with 24-hour I&O reflecting a negative fluid balance.Telemetry reporting sinus rhythm with bundle branch block. Echo reporting EF 40-45%, mild decrease- previously 50%. Blood pressures soft. Anticoagulation transitioned to ELiquis yesterday. Objective - Vital Signs Vital signs: Vital Signs Temp 97.5 F L 12/13/22 08:00 Pulse 65 12/13/22 14:00 Resp 18 12/13/22 14:00 BP 96/50 12/13/22 12:00 Pulse Ox 93 L 12/13/22 12:00 FiO2 Intake & Output 12/12/22 12/13/22 12/13/22 18:59 06:59 18:59 Intake Total 236 400 358 Output Total 600 1000 550 Balance -364 -600 -192 Weight 80.7 kg 100.4 kg Intake: Intake, IV Titration 100 Amount Cefepime 2 gm In Sodium 100 Chloride 0.9% 100 ml @ 25 mls/hr IVPB Q12HR [facility] Rx #:[id number] Oral 236 300 358 Output: Urine 600 1000 550 Other: Voiding Method Urinal Urinal # Bowel Movements 1 - Exam GENERAL:Alert and oriented x3, sitting up in bed, respiratory effort mildly increased HEENT: Normocephalic, atraumatic ,Pupils are round and equally reacting to light. No conjunctival pallor. CARDIOVASCULAR: S1 and S2 present. Systolic murmur,no rubs, or gallops. PULMONARY: Chest is clear to auscultation, no wheezing or crackles. ABDOMEN: Soft, nontender, nondistended, normoactive bowel sounds. No palpable organomegaly. EXTREMITIES: No cyanosis, clubbing, or pedal edema. NEUROLOGICAL: Gross neurological examination did not reveal any focal deficits. SKIN: No rashes. - Labs CBC & Chem 7: 12/12/22 09:56 12/12/22 09:56 Labs: Abnormal Lab Results - Last 24 Hours (Table) 12/12/22 12/12/22 12/13/22 Range/Units 16:44 20:26 06:20 APTT (22.0-30.0) sec POC Glucose (mg/dL) 188 H 184 H 136 H (70-110) mg/dL 12/13/22 12/13/22 Range/Units 10:28 11:29 APTT 21.5 L (22.0-30.0) sec POC Glucose (mg/dL) 140 H (70-110) mg/dL Microbiology - Last 24 Hours (Table) 12/10/22 12:17 Blood Culture - Preliminary Blood 12/10/22 12:33 Blood Culture Gram Stain - Final Blood Blood Culture - Final Coagulase Negative Staph Assessment and Plan Assessment: Acute on chronic hypoxic respiratory failure, possible atypical pneumonia, possible radiation pneumonitis History of Lung cancer, stage III, squamous cell ,status post chemo. and radiation therapy Acute NSTEMI Right bundle-branch block CT, history of CABG Hypertension Hyperlipidemia Hypothyroidism Parkinson's disease Plan: Continue on current medication regime ,monitoring and symptomatic treatment. Diuretics as per cardiology.Aggressive pulmonary toileting, maintain broad-spectrum antibiotics, IV steroids. Titrating oxygen as tolerated. Discharge planning in progress for subacute rehab.,pending further titration of oxygen. The impression and plan of care has been dictated as directed. : I performed a history and examination of this patient, discussed the same with the dictator. I agree with the dictator's note ,documented as a scribe. Any additional findings or plans will be noted.
[2022-12-13 16:50] LABS: Glucose,Whole Blood 151 mg/dL (70-110)
--- NOTE | 2022-12-13 17:54 | P.PN ---
Subjective History of Present Illness: The patient is a 77-year-old male with a known history of CAD, status post CABG, followed by Dr. Hill, diagnosed with lung CA in July, received radiation and undergoing chemotherapy, followed by Dr. Oconnell who presented with symptoms of progressive dyspnea, cough and fatigue. His troponin was noted to be elevated. He had no associated chest discomfort, peripheral edema, PND or orthopnea. The patient was admitted in October with troponin elevation at that time underwent an MPI that showed no evidence of stress-induced ischemia. His echocardiogram showed an ejection fraction of 50% with mild mitral regurgitation. The patient underwent CABG about 30 years ago. He stopped smoking at that time. He has no history of malignant arrhythmia. His coronary risk factors are positive for hypertension and hyperlipidemia, he is a nondiabetic. He has a prior history of pulmonary embolism and has been anticoagulated. Medications: Aspirin, Toprol-XL 25 mg daily, Lasix 20 mg daily, Sinemet, aspirin, simvastatin 40 mg daily,Eliquis 5 mg twice a day. 12/12 Patient seen and examined. Patient denies any chest pain or pressure. He states his shortness breath is slowly been improving. Echocardiogram performed with mild decrease in ejection fraction of 40-45%, previously in October 50%. Blood pressure is borderline in the 90s to 100s. 12/13 Patient seen and examined. Patient denies any chest pain or pressure. States his breathing is well controlled. Blood pressures mainly in the 90s over 50s. Remains on nasal cannula 4 L. Blood work is not resulted yet from today. He has still been receiving Lasix 40 mg IV every 12 hours. Physical Examination: Vitals reviewed Head: Normocephalic. Eyes: Sclerae nonicteric. Neck: Good carotid upstroke, no bruit, no jugular venous distention. Lungs: Bilateral rhonchi and crackles Heart: Regular rate and rhythm, S1-S2, no S3, no rub. Systolic ejection murmur. Abdomen: Soft nontender, positive bowel sounds no organomegaly. Extremities: No edema, intact distal pulses. EKG: Sinus mechanism, rate of 92, right bundle branch block with left axis deviation Impression: 1. Non-STEMI with no symptoms of chest discomfort 2. Lung cancer receiving chemotherapy 3. Possible pneumonia 4. History of CABG 30 years ago 5. History of hypertension 6. History of hyperlipidemia 7. History of Parkinson disease Plan: Patient not a good interventional candidate currently with active malignancy and currently not having a chest pain. Continue with medical therapy. Check repeat blood work tomorrow. Continue diuretics for today. Hopeful discharge home next 24-48 hours however may need rehab. Objective - Vital Signs Vital signs: Vital Signs Temp 97.5 F L 12/13/22 08:00 Pulse 65 12/13/22 14:00 Resp 18 12/13/22 14:00 BP 96/50 12/13/22 12:00 Pulse Ox 93 L 12/13/22 12:00 FiO2 Intake & Output 12/12/22 12/13/22 12/13/22 18:59 06:59 18:59 Intake Total 236 400 358 Output Total 600 1000 550 Balance -364 -600 -192 Weight 80.7 kg 100.4 kg Intake: Intake, IV Titration 100 Amount Cefepime 2 gm In Sodium 100 Chloride 0.9% 100 ml @ 25 mls/hr IVPB Q12HR [facility] Rx #:[id number] Oral 236 300 358 Output: Urine 600 1000 550 Other: Voiding Method Urinal Urinal # Bowel Movements 1 - Labs CBC & Chem 7: 12/12/22 09:56 12/12/22 09:56 Labs: Abnormal Lab Results - Last 24 Hours (Table) 12/12/22 12/13/22 12/13/22 Range/Units 20:26 06:20 10:28 APTT 21.5 L (22.0-30.0) sec POC Glucose (mg/dL) 184 H 136 H (70-110) mg/dL 12/13/22 12/13/22 Range/Units 11:29 16:36 APTT (22.0-30.0) sec POC Glucose (mg/dL) 140 H 151 H (70-110) mg/dL Microbiology - Last 24 Hours (Table) 12/10/22 12:17 Blood Culture - Preliminary Blood 12/10/22 12:33 Blood Culture Gram Stain - Final Blood Blood Culture - Final Coagulase Negative Staph
[2022-12-13 20:14] LABS: Glucose,Whole Blood 177 mg/dL (70-110)
[2022-12-13] MEDS: QUEtiapine 100 MG TAB PO SCH (21:34)
[2022-12-14] MEDS: methylPREDNISolone SOD SUCCI 40 MG/ML 1 ML VIAL IV SCH ×3 (01:32→12:35)
[2022-12-14] MEDS: LEVOTHYROXINE 50 MCG TAB PO SCH (06:54)
[2022-12-14 06:57] LABS: Glucose,Whole Blood 131 mg/dL (70-110)
[2022-12-14] MEDS: INSULIN ASPART (NovoLOG) 100 UNIT/ML VIAL SQ SCH ×2 (07:07→12:33)
[2022-12-14] MEDS ORDERED: IPRATROPIUM-ALBUTEROL 3 ML NEB INHALATION PRN (09:39)
[2022-12-14] MEDS: AZITHROMYCIN 500 MG TAB PO SCH (09:50)
[2022-12-14] MEDS: CARBIDOPA-LEVODOPA ER 50-200MG 1 EACH TABLET.ER PO SCH (09:50)
[2022-12-14] MEDS: FUROSEMIDE 10 MG/ML 4 ML VIAL IV SCH (09:50)
[2022-12-14] MEDS: DIVALPROEX 250 MG TABLET.DR PO SCH (09:51)
[2022-12-14] MEDS: ASPIRIN 81 MG PO SCH (09:51)
[2022-12-14] MEDS: ATORVASTATIN 40 MG TAB PO SCH (09:51)
[2022-12-14] MEDS: OLANZapine 10 MG TAB PO SCH (09:51)
[2022-12-14] MEDS: DONEPEZIL 10 MG TAB PO SCH (09:51)
[2022-12-14] MEDS: APIXABAN 5 MG TAB PO SCH (09:51)
[2022-12-14] MEDS: METOPROLOL SUCCINATE (ER) 25 MG TAB.ER.24H PO SCH (09:52)
[2022-12-14] MEDS: CEFEPIME 2 GM in SODIUM CHLORIDE 0.9% 100 ML IVPB SCH (09:52)
[2022-12-14] MEDS: FAMOTIDINE 20 MG TAB PO SCH (09:52)
[2022-12-14 11:16] LABS: Anisocytosis Slight; Basophils % (A) 0 %; Eosinophils % (A) 0 %; HCT 36.4 % (39.0-53.0); HGB 10.7 gm/dL (13.0-17.5); Hypochromasia Marked; Lymphocytes # (A) 0.5 k/uL (1.0-4.8); Lymphocytes % (A) 6 %; MCH 26.4 pg (25.0-35.0); MCHC 29.3 g/dL (31.0-37.0); MCV 90.1 fL (80.0-100.0); Monocytes # (A) 0.3 k/uL (0-1.0); Monocytes % (A) 3 %; Neutrophils # (A) 7.1 k/uL (1.3-7.7); Neutrophils % (A) 90 %; Platelet Count 201 k/uL (150-450); RBC 4.04 m/uL (4.30-5.90); RDW 19.9 % (11.5-15.5); WBC 7.8 k/uL (3.8-10.6)
[2022-12-14 11:23] VITALS: RESP 18; TEMP 97.6
[2022-12-14 11:37] LABS: Glucose,Whole Blood 262 mg/dL (70-110)
[2022-12-14 11:45] LABS: African American GFR (CKD) 81 (>60 ml/min/1.73 sqM); Anion Gap 13 mmol/L; Blood Urea Nitrogen 48 mg/dL (9-20); Carbon Dioxide 33 mmol/L (22-30); Chloride 93 mmol/L (98-107); Glucose 245 mg/dL (74-99); Non-African American GFR(CKD) 70 (>60 ml/min/1.73 sqM); Potassium 4.4 mmol/L (3.5-5.1); Sodium 139 mmol/L (137-145)
[2022-12-14] MEDS: IPRATROPIUM-ALBUTEROL 3 ML NEB INHALATION SCH ×2 (11:59→15:31)
[2022-12-14] MEDS: FERROUS SULFATE 325 MG TAB PO SCH (12:35)
[2022-12-14 13:25] VITALS: BP 138/63; PULSE 72
--- NOTE | 2022-12-14 13:37 | CDI ---
Documentation Clarification Form Date: 12/14/2022 01:21:44 PM From: Nina Darden RN CCDS Phone: [phone] Admit Date: 12/10/2022 01:36:00 PM Patient Name: Alphonse Goode Visit Number: [id number] Discharge Date: ATTENTION: The Clinical Documentation Specialists (CDI) and [facility] Coding Staff appreciate your assistance in clarifying documentation. Please respond to the clarification below the line at the bottom and electronically sign. The CDI & [facility] Coding staff will review the response and follow-up if needed. Please note: Queries are made part of the Legal Health Record. If you have any questions, please contact the author of this message via ITS. Dr. Gavin Joyce Possible severe sepsis is documented H&P, 12/10 and Note, 12/11 but is not noted in subsequent documentation. Clarification is requested. History/Risk Factors:77-year-old female presents to the ED with shortness of breath for four days. Medical History: Lung cancer with treatment one month ago, [place], Parkinson, CABG and dementia. 12/10, H&P. Clinical Indicators: 12/10, VSS: B/P 119/74; HR 93; Temp 97.8 F Oral; RR 40; SpO2 85% room air 12/10, CXR: Diffuse bilateral airspace infiltrates greatest within the perihilar and upper lobe regions. 12/10, Labs: Wbc 10; Neutrophils 8.2; Lymph 0.5; Lactic acid 3.1; Troponin 4/490, BNP 5640 Treatment: 12/10 Ventolin Inhalation x1; Atrovent Inhalation x 1; Solumedrol IV x 1; Azithromycin IVPB x 1; Ceftriaxone IVPB x 1; 12/11 Ceftriaxone IVPB Q24HR; 12/11 Cefepime IVPB Q12HR; 12/12 Solumedrol 40mg IV Q6HR; Albuterol Inhalation PRN; Duoneb Inhalation QID KAMALA. Please clarify if the Sepsis is: [ X ] Sepsis confirmed, remains under treatment [ ] Sepsis confirmed, resolved [ ] Sepsis ruled out [ ] Other condition, please specify [ ] Unable to determine (Template Last Revised: September 2020) MTDD
--- NOTE | 2022-12-14 14:00 | P.PN ---
Subjective Progress Note Date: 12/14/22 History of Present Illness: The patient is a 77-year-old male with a known history of CAD, status post CABG, followed by Dr. Hill, diagnosed with lung CA in July, received radiation and undergoing chemotherapy, followed by Dr. Oconnell who presented with symptoms of progressive dyspnea, cough and fatigue. His troponin was noted to be elevated. He had no associated chest discomfort, peripheral edema, PND or orthopnea. The patient was admitted in October with troponin elevation at that time underwent an MPI that showed no evidence of stress-induced ischemia. His echocardiogram showed an ejection fraction of 50% with mild mitral regurgitation. The patient underwent CABG about 30 years ago. He stopped smoking at that time. He has no history of malignant arrhythmia. His coronary risk factors are positive for hypertension and hyperlipidemia, he is a nondiabetic. He has a prior history of pulmonary embolism and has been anticoagulated. Medications: Aspirin, Toprol-XL 25 mg daily, Lasix 20 mg daily, Sinemet, aspirin, simvastatin 40 mg daily,Eliquis 5 mg twice a day. 12/12 Patient seen and examined. Patient denies any chest pain or pressure. He states his shortness breath is slowly been improving. Echocardiogram performed with mild decrease in ejection fraction of 40-45%, previously in October 50%. Blood pressure is borderline in the 90s to 100s. 12/13 Patient seen and examined. Patient denies any chest pain or pressure. States his breathing is well controlled. Blood pressures mainly in the 90s over 50s. Remains on nasal cannula 4 L. Blood work is not resulted yet from today. He has still been receiving Lasix 40 mg IV every 12 hours. 12/14 Patient is seen today in follow-up. He states he is very tired because he could not get his CPAP to work last night. Blood pressure is improved. He is on IV Lasix which will be transitioned to oral. Heart rate is in the 60s and 70s, blood pressure 130/63, pulse ox 90% on 3 L nasal cannula. Repeat hemoglobin 10.7, BUN 48 creatinine 1.02. Physical Examination: Vitals reviewed Head: Normocephalic. Eyes: Sclerae nonicteric. Neck: Good carotid upstroke, no bruit, no jugular venous distention. Lungs: Bilateral rhonchi and crackles Heart: Regular rate and rhythm, S1-S2, no S3, no rub. Systolic ejection murmur. Abdomen: Soft nontender, positive bowel sounds no organomegaly. Extremities: No edema, intact distal pulses. EKG: Sinus mechanism, rate of 92, right bundle branch block with left axis deviation Impression: 1. Non-STEMI with no symptoms of chest discomfort 2. Lung cancer receiving chemotherapy 3. Possible pneumonia 4. History of CABG 30 years ago 5. History of hypertension 6. History of hyperlipidemia 7. History of Parkinson disease Plan: Patient not a good interventional candidate currently with active malignancy and currently not having a chest pain. Continue with medical therapy. Patient is cleared from cardiology for discharge. Cardiology will follow on an as-needed basis. Please reconsult if any new concerns. Patient will follow-up in the office with Dr. Hill in one to 2 weeks following discharge.. Nurse practitioner note has been reviewed, I agree with the documented findings and plan of care. Patient was seen and examined. Objective - Vital Signs Vital signs: Vital Signs Temp 97.6 F 12/14/22 08:00 Pulse 76 12/14/22 12:12 Resp 18 12/14/22 08:00 BP 123/64 12/14/22 08:00 Pulse Ox 95 12/14/22 08:00 FiO2 Intake & Output 12/13/22 12/14/22 12/14/22 18:59 06:59 18:59 Intake Total 476 1678 Output Total 1000 Balance -524 1678 Weight 99.8 kg Intake: Oral 476 1678 Output: Urine 1000 Other: Voiding Method Urinal # Voids 0 - Labs CBC & Chem 7: 12/14/22 10:06 12/14/22 10:06 Labs: Abnormal Lab Results - Last 24 Hours (Table) 12/13/22 12/13/22 12/14/22 Range/Units 16:36 20:08 06:56 RBC (4.30-5.90) m/uL Hgb (13.0-17.5) gm/dL Hct (39.0-53.0) % MCHC (31.0-37.0) g/dL RDW (11.5-15.5) % Lymphocytes # (1.0-4.8) k/uL Chloride (98-107) mmol/L Carbon Dioxide (22-30) mmol/L BUN (9-20) mg/dL Glucose (74-99) mg/dL POC Glucose (mg/dL) 151 H 177 H 131 H (70-110) mg/dL 12/14/22 12/14/22 12/14/22 Range/Units 10:06 10:06 11:36 RBC 4.04 L (4.30-5.90) m/uL Hgb 10.7 L (13.0-17.5) gm/dL Hct 36.4 L (39.0-53.0) % MCHC 29.3 L (31.0-37.0) g/dL RDW 19.9 H (11.5-15.5) % Lymphocytes # 0.5 L (1.0-4.8) k/uL Chloride 93 L (98-107) mmol/L Carbon Dioxide 33 H (22-30) mmol/L BUN 48 H (9-20) mg/dL Glucose 245 H (74-99) mg/dL POC Glucose (mg/dL) 262 H (70-110) mg/dL Microbiology - Last 24 Hours (Table) 12/10/22 12:17 Blood Culture - Preliminary Blood
[2022-12-14] MEDS ORDERED: MAGNESIUM SULFATE SYG 4.06 MEQ/ML SYRINGE ONE (14:50)
[2022-12-14 14:57] LABS: Glucose,Whole Blood 251 mg/dL (70-110)
--- NOTE | 2022-12-14 15:12 | P.PN ---
Subjective Progress Note Date: 12/14/22 Principal diagnosis: Acute nonspecific pneumonitis, stage III lung cancer. This 77-year-old male patient came into the hospital because of worsening shortness of breath. He has limited cough. No significant sputum production. 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 He was in the hospital back in October 2022 for an acute non-STEMI. Is known to have coronary disease and he has undergone bypass surgery many years back. His white cell count at 6.3 with a hemoglobin of 9.3. His troponin in the emergency was was high at 4.4 is down trending. He has no chest pain. EKG showing a r ight bundle branch block pattern and was present on previous admissions. BUN is at 31 with a creatinine of 0.9. Lactic acid level is at 2.9. The patient is currently on IV heparin. Started on Rocephin and Zithromax. No altered mentation. Currently is on 4 L of oxygen by nasal cannula. CAT scan of the chest was done and it shows positive treatment response in terms of a left upper lobe mass. No new masses or lymphadenopathy. There is worsening groundglass pulmonary for this bilaterally, could be infection versus radiation pneumonitis. The patient is seen today 12/12/2022 in follow-up on the selective care unit. He is currently resting comfortably in bed. Awake and alert in no acute distress. He is maintaining O2 saturations in the low 90s on 4 L/m per nasal cannula. He's been afebrile. Hemodynamically stable. Echocardiogram reveals impaired left ventricular systolic function with ejection fraction 40-45%. Blood culture revealed no growth. White count 8.0. Hemoglobin 9.5. Platelets 209. Sodium 140. Potassium 4.2. Bicarb 31. BUN 39. Creatinine 1.01. Glucose 147. He is continued on anti-vaccine form of cefepime and azithromycin. On IV Solu-Medrol. Continued on a heparin drip. Peak troponin 4.70. Remains on IV diuretics. Currently in a -1.5 L balance. Reevaluated today on 12/13/2022, patient is feeling better, breathing easier, chest x-ray is showing improvement. Patient remains on diuretics steroids and on antibiotics. Steadily improving, he is now on 4 L nasal cannula, O2 saturation is in the 90s. Hence I'm recommending no change from the present treatment plan since the patient is responding well to the present medications. Urine Legionella antigen was negative Reevaluated today on 12/14/2022, patient is feeling much better today, breathing a lot easier, seems to be resting in bed, not in any distress, patient is on 3 L nasal cannula, O2 sats is 90%. wbc count is 7.8 hemoglobin is 10.7 and electrolytes are normal renal profile is normal, chest x-ray from yesterday noted improvement, hence I'm suspecting that the findings are mostly findings of congestive heart failure with improvement patient does have history of systolic dysfunction. Objective - Vital Signs Vital signs: Vital Signs Temp 97.6 F 12/14/22 08:00 Pulse 76 12/14/22 12:12 Resp 18 12/14/22 12:00 BP 138/63 12/14/22 12:00 Pulse Ox 90 L 12/14/22 12:00 FiO2 Intake & Output 12/13/22 12/14/22 12/14/22 18:59 06:59 18:59 Intake Total 476 1678 Output Total 1000 425 Balance -524 1253 Weight 99.8 kg Intake: Oral 476 1678 Output: Urine 1000 425 Other: Voiding Method Urinal # Voids 0 - Exam Physical Exam: Revealed a 77-year-old white male in no distress on 3 L nasal cannula Head: Atraumatic normocephalic. HEENT:[Neck is supple.] [No neck masses.] [No thyromegaly.] [No JVD.] Chest: [Symmetrical chest expansion crackles at the bases no rhonchi and no wheezes Cardiac Exam: [Normal S1 and S2, no S3 gallop, no murmur.] Abdomen: [Soft, nontender, no megaly, no rebound, no guarding, normal bowel sounds.] Extremities: [No clubbing, 1+ bipedal edema, no cyanosis.] Neurological Exam: [No focal neurologic deficit.] Alert oriented 3. Psychiatric: Normal mood affect and normal status examination. Skin: No rashes. - Labs CBC & Chem 7: 12/14/22 10:06 12/14/22 10:06 Labs: Abnormal Lab Results - Last 24 Hours (Table) 12/13/22 12/13/22 12/14/22 Range/Units 16:36 20:08 06:56 RBC (4.30-5.90) m/uL Hgb (13.0-17.5) gm/dL Hct (39.0-53.0) % MCHC (31.0-37.0) g/dL RDW (11.5-15.5) % Lymphocytes # (1.0-4.8) k/uL Chloride (98-107) mmol/L Carbon Dioxide (22-30) mmol/L BUN (9-20) mg/dL Glucose (74-99) mg/dL POC Glucose (mg/dL) 151 H 177 H 131 H (70-110) mg/dL 12/14/22 12/14/22 12/14/22 Range/Units 10:06 10:06 11:36 RBC 4.04 L (4.30-5.90) m/uL Hgb 10.7 L (13.0-17.5) gm/dL Hct 36.4 L (39.0-53.0) % MCHC 29.3 L (31.0-37.0) g/dL RDW 19.9 H (11.5-15.5) % Lymphocytes # 0.5 L (1.0-4.8) k/uL Chloride 93 L (98-107) mmol/L Carbon Dioxide 33 H (22-30) mmol/L BUN 48 H (9-20) mg/dL Glucose 245 H (74-99) mg/dL POC Glucose (mg/dL) 262 H (70-110) mg/dL 12/14/22 Range/Units 14:53 RBC (4.30-5.90) m/uL Hgb (13.0-17.5) gm/dL Hct (39.0-53.0) % MCHC (31.0-37.0) g/dL RDW (11.5-15.5) % Lymphocytes # (1.0-4.8) k/uL Chloride (98-107) mmol/L Carbon Dioxide (22-30) mmol/L BUN (9-20) mg/dL Glucose (74-99) mg/dL POC Glucose (mg/dL) 251 H (70-110) mg/dL Microbiology - Last 24 Hours (Table) 12/10/22 12:17 Blood Culture - Preliminary Blood Assessment and Plan Assessment: Impression: Acute dyspnea, with development of bilateral ground glass pulmonary infiltrates, consider atypical pneumonia versus radiation pneumonitis. 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 Right bundle-branch block pattern, unchanged Hyperlipidemia Hypothyroidism Parkinson disease Recommendation: Continue diuretics Continue Solu-Medrol Continue bronchodilators We will continue to follow Follow-up chest x-ray today showed improvement Time with Patient: Less than 30
--- NOTE | 2022-12-14 15:23 | P.PN ---
Subjective Progress Note Date: 12/14/22 Principal diagnosis: NSTEMI, SOB. Completed definitive Tx for Sq cell NSCLC In f/u pt reporting breathing is stable, small amts of thick mucus production, no hemoptysis, fevers, he is tolerating oral intake, he has not had a BM but reports not unusual for him. He is wanting to go to rehab on [place] to get some strength back. Objective - Vital Signs Vital signs: Vital Signs Temp 97.6 F 12/14/22 08:00 Pulse 76 12/14/22 12:12 Resp 18 12/14/22 12:00 BP 138/63 12/14/22 12:00 Pulse Ox 90 L 12/14/22 12:00 FiO2 Intake & Output 12/13/22 12/14/22 12/14/22 18:59 06:59 18:59 Intake Total 476 1678 Output Total 1000 425 Balance -524 1253 Weight 99.8 kg Intake: Oral 476 1678 Output: Urine 1000 425 Other: Voiding Method Urinal # Voids 0 - Constitutional General appearance: Present: cooperative, no acute distress, obese - EENT Eyes: Present: anicteric sclerae, EOMI ENT: Present: hearing grossly normal - Respiratory Respiratory: bilateral: CTA - Cardiovascular Rhythm: regular Heart sounds: normal: S1, S2 Abnormal Heart Sounds: Absent: systolic murmur, diastolic murmur, rub, S3 Gallop, S4 Gallop, click, other - Gastrointestinal General gastrointestinal: Present: normal bowel sounds, soft - Integumentary Integumentary: Present: normal - Neurologic Neurologic: Present: CNII-XII intact - Musculoskeletal Musculoskeletal: Present: generalized weakness - Psychiatric Psychiatric: Present: A&O x's 3, appropriate affect, intact judgment & insight - Labs CBC & Chem 7: 12/14/22 10:06 12/14/22 10:06 Labs: Abnormal Lab Results - Last 24 Hours (Table) 12/13/22 12/13/22 12/14/22 Range/Units 16:36 20:08 06:56 RBC (4.30-5.90) m/uL Hgb (13.0-17.5) gm/dL Hct (39.0-53.0) % MCHC (31.0-37.0) g/dL RDW (11.5-15.5) % Lymphocytes # (1.0-4.8) k/uL Chloride (98-107) mmol/L Carbon Dioxide (22-30) mmol/L BUN (9-20) mg/dL Glucose (74-99) mg/dL POC Glucose (mg/dL) 151 H 177 H 131 H (70-110) mg/dL 12/14/22 12/14/22 12/14/22 Range/Units 10:06 10:06 11:36 RBC 4.04 L (4.30-5.90) m/uL Hgb 10.7 L (13.0-17.5) gm/dL Hct 36.4 L (39.0-53.0) % MCHC 29.3 L (31.0-37.0) g/dL RDW 19.9 H (11.5-15.5) % Lymphocytes # 0.5 L (1.0-4.8) k/uL Chloride 93 L (98-107) mmol/L Carbon Dioxide 33 H (22-30) mmol/L BUN 48 H (9-20) mg/dL Glucose 245 H (74-99) mg/dL POC Glucose (mg/dL) 262 H (70-110) mg/dL 12/14/22 Range/Units 14:53 RBC (4.30-5.90) m/uL Hgb (13.0-17.5) gm/dL Hct (39.0-53.0) % MCHC (31.0-37.0) g/dL RDW (11.5-15.5) % Lymphocytes # (1.0-4.8) k/uL Chloride (98-107) mmol/L Carbon Dioxide (22-30) mmol/L BUN (9-20) mg/dL Glucose (74-99) mg/dL POC Glucose (mg/dL) 251 H (70-110) mg/dL Microbiology - Last 24 Hours (Table) 12/10/22 12:17 Blood Culture - Preliminary Blood Assessment and Plan (1) Hypoxia Current Visit: Yes Status: Acute Priority: High Code(s): R09.02 - HYPOXEMIA SNOMED Code(s): 598473083 (2) Squamous cell carcinoma lung Current Visit: Yes Status: Acute Priority: Medium Code(s): C34.90 - MALIGNANT NEOPLASM OF UNSP PART OF UNSP BRONCHUS OR LUNG SNOMED Code(s): 085441015 Plan: Hypoxia -Oxygen saturation stable since yesterday, 4 L nasal cannula -Pneumonia versus radiation pneumonitis as underlying cause. Antibiotic and steroids are ordered per Pulmonary -Echo LVEF 40-45%. Diuretics and beta rafy added. Pt is on heparin drip for elevated troponin per Cardiology. -Patient is a treated stage IIIc squamous cell lung cancer so, if any aggressive cardiac workup is needed it is certainly reasonable to do so, if able to be done from a Cardiopulmonary standpoint. Squamous cell carcinoma of the lung stage IIIc -Status post concurrent chemoradiation completion 3 weeks ago, with excellent response on treatment follow-up CT scan -May start maintenance durvalumab once current condition is treated, patient recovered, and he is reassessed by his Oncologist -Follow-up with primary Medical Oncologist after DC from hospital or, after discharge from rehabilitation I called to update her per pt request about his CT chest looking better and plans for maintenance therapy after he completed rehab and was feeling stronger but, she report pt dies suddenly.
[2022-12-15] MEDS ORDERED: FUROSEMIDE 40 MG TAB PO SCH (09:00)
--- NOTE | 2022-12-19 11:03 | CDI ---
Documentation Clarification Form Date: 12/19/2022 10:40:06 AM From: Mya Romeo RN, CCDS Email: [email or web address] Admit Date: 12/10/2022 01:36:00 PM Patient Name: Alphonse Goode Visit Number: [id number] Discharge Date: 12/14/2022 06:00:00 PM ATTENTION: The Clinical Documentation Specialists (CDI) and [facility] Coding Staff appreciate your assistance in clarifying documentation. Please respond to the clarification below the line at the bottom and electronically sign. The CDI & [facility] Coding staff will review the response and follow-up if needed. Please note: Queries are made part of the Legal Health Record. If you have any questions, please contact the author of this message via ITS. Dr. Gavin Joyce Mild acute renal failure secondary to acute tubular necrosis is documented in the H&P and 12/11 progress note which may lack sufficient clinical evidence/support in the medical record. Additional clarification is requested. History/Risk Factors: Lung cancer, s/p treatment about a month ago. Admitted with sepsis, acute hypoxic respiratory failure, CHF and pneumonia. Clinical Indicators: H&P: "mild acute renal failure secondary to acute tubular necrosis can be secondary to hypo perfusion and hypotension." 6 BP: 119/74-93/54-104/7-126/77 6/ BUN/Cr/GFR: 25-1.10-64 6/4 BUN/Cr/GFR: 31-0.96-75 6/ BUN/Cr/GFR: 39-1.01-71 6/7 BUN/Cr/GFR: 48-1.02-70 Treatment: Monitor labs. Monitor vital signs. Please clarify if renal failure secondary to acute tubular necrosis is a valid diagnosis? [ ] Yes, renal failure with ATN was present as evidence by (additional clinical support): [ X] No, renal failure with ATN was ruled out [ ] Other (please specify diagnosis) [ ] Unable to determine MTDD
== END 2022-12-14 18:00 | disposition expired | DRG 871 ==
LOC: EC 12:03 → 3SCARD 13:36
PROVIDERS: ADMIT Family Medicine; ATTEND Family Medicine
DX: A41.9 Sepsis, unspecified organism (principal); I21.4 Non-ST elevation (NSTEMI) myocardial infarction; I50.21 Acute systolic (congestive) heart failure; J18.9 Pneumonia, unspecified organism; J96.21 Acute and chronic respiratory failure with hypoxia; J70.0 Acute pulmonary manifestations due to radiation; C34.90 Malignant neoplasm of unspecified part of unspecified bronchus or lung; J44.0 Chronic obstructive pulmonary disease with (acute) lower respiratory infection; I45.2 Bifascicular block; I11.0 Hypertensive heart disease with heart failure; G20 Parkinson's disease; E78.5 Hyperlipidemia, unspecified; D64.9 Anemia, unspecified; E03.9 Hypothyroidism, unspecified; F02.80 Dementia in other diseases classified elsewhere, unspecified severity, without behavioral disturbance, psychotic disturbance, mood disturbance, and anxiety; Z66 Do not resuscitate; I45.10 Unspecified right bundle-branch block; Z79.890 Hormone replacement therapy; I25.10 Atherosclerotic heart disease of native coronary artery without angina pectoris; I25.2 Old myocardial infarction; I34.0 Nonrheumatic mitral (valve) insufficiency; F31.9 Bipolar disorder, unspecified; K21.9 Gastro-esophageal reflux disease without esophagitis; T45.1X5A Adverse effect of antineoplastic and immunosuppressive drugs, initial encounter; X58.XXXA Exposure to other specified factors, initial encounter; Z79.01 Long term (current) use of anticoagulants; Z79.52 Long term (current) use of systemic steroids; Z79.82 Long term (current) use of aspirin; Z79.899 Other long term (current) drug therapy; Z86.711 Personal history of pulmonary embolism; Z95.1 Presence of aortocoronary bypass graft; Z87.891 Personal history of nicotine dependence
CPT/HCPCS: 36415; 71045; 80048; 80053; 83036; 83605; 83735; 83880; 84145; 84484; 85025; 85027; 85610; 85730; 87040; 87449; 93005; 93306; 94640; 94760; 96365; 96366; 96367; 96368; 96375; 99291